=== PATIENT | female | born 1930 | race African-American/Black ===

== ENCOUNTER → 2017-12-09 | Outpatient (CLI) | payer BC, MEDICARE ==
[~2017-12-09] MED LIST: AMLO10TA2 PO; ASPI1TAB57 PO; LEVO.05 PO; VITA1000 PO; VITA10004 PO
[2017-12-09 12:26] LABS: AUTOMATED NEUTROPHIL # 2.8 TH/MM3 (1.8-7.7); BASOPHIL # 0.1 TH/MM3 (0-0.2); BASOPHIL % 0.9 % (0.0-2.0); EOSINOPHIL # 0.2 TH/MM3 (0-0.4); EOSINOPHIL % 3.6 % (0.0-4.0); HEMATOCRIT 36.4 % (35.0-46.0); HEMOGLOBIN 12.1 GM/DL (11.6-15.3); LYMPH % 35.6 % (9.0-44.0); LYMPHOCYTE # 1.9 TH/MM3 (1.0-4.8); MEAN CELL VOLUME 77.5 FL (80.0-100.0); MEAN CORPUSCULAR HEMOGLOBIN 25.7 PG (27.0-34.0); MEAN CORPUSCULAR HGB CONC 33.1 % (32.0-36.0); MEAN PLATELET VOLUME 7.9 FL (7.0-11.0); MONO % 7.4 % (0.0-8.0); MONOCYTE # 0.4 TH/MM3 (0-0.9); NEUT % 52.5 % (16.0-70.0); PLATELET COUNT 227 TH/MM3 (150-450); RED CELL DISTRIBUTION WIDTH 15.2 % (11.6-17.2); WHITE BLOOD COUNT 5.3 TH/MM3 (4.0-11.0)
[2017-12-09 12:29] LABS: INTERNATIONAL NORMALIZED RATIO 1.1 RATIO; PROTHROMBIN TIME - PATIENT 10.8 SEC (9.8-11.6)
[2017-12-09 12:41] LABS: BILIRUBIN, URINE NEG (NEG); BLOOD, URINE NEG (NEG); GLUCOSE,URINE NEG (NEG); KETONE, URINE NEG (NEG); MUCUS URINE FEW /lpf (OCC); NITRITE,URINE NEG (NEG); PH, URINE 6.5 (5.0-8.5); SQUAMOUS EPITHELIAL CELL URINE <1 /hpf (0-5); URINE COLOR LIGHT-YELLOW (YELLW/STRAW); URINE LEUKOCYTE ESTERASE NEG (NEG)
[2017-12-09 12:48] LABS: ALBUMIN 3.8 GM/DL (3.4-5.0); AST (GOT) 15 U/L (15-37); BLOOD UREA NITROGEN 18 MG/DL (7-18); CALCIUM 9.2 MG/DL (8.5-10.1); CHLORIDE 103 MEQ/L (98-107); CREATININE 0.99 MG/DL (0.50-1.00); GLOMERULAR FILTRATION RATE 65 ML/MIN (>89); GLUCOSE,FASTING 89 MG/DL (74-99); SODIUM (NA) 138 MEQ/L (136-145); WESTERGREN SEDIMENTATION RATE 23 mm/hr (0-30)
[2017-12-09 12:49] LABS: ALT (GPT) 17 U/L (10-53)
[2017-12-09 12:52] LABS: ALKALINE PHOSPHATASE 83 U/L (45-117); TOTAL BILIRUBIN ADULT 0.7 MG/DL (0.2-1.0); TOTAL PROTEIN 7.8 GM/DL (6.4-8.2)
== END ==
LOC: CPRE 11:20
PROVIDERS: ATTEND Orthopaedic Surgery
DX: Z01.810 Encounter for preprocedural cardiovascular examination (principal); Z01.812 Encounter for preprocedural laboratory examination; Z01.818 Encounter for other preprocedural examination; M17.12 Unilateral primary osteoarthritis, left knee; M25.50 Pain in unspecified joint; Z79.01 Long term (current) use of anticoagulants
CPT/HCPCS: 36415; 80053; 81001; 85025; 85610; 85652; 85730

== ENCOUNTER 2017-12-25 08:30 | Inpatient (IN) | payer MEDICARE, BC ==
[~2017-12-25] VITALS: Ht 172.7 cm; Wt 90.9 kg
[2018-01-15] VITALS (12 sets, daily range): BP systolic 140–171; BP diastolic 72–105; PULSE 51–108; RESP 16–20; TEMP 97.1–97.5; O2SAT 93–99
[2018-01-15] MEDS ORDERED: INSULIN HUMAN REGULAR 1,000 UNITS/10 ML VIAL SQ PRN (07:30)
[2018-01-15] MEDS ORDERED: SODIUM CHLORID 0.9% 500 ML IV PRN (07:30)
[2018-01-15] MEDS ORDERED: LACTATED RINGER'S 1000 ML IV PRN (07:30)
[2018-01-15] MEDS ORDERED: METOPROLOL TARTRATE 25 MG TAB PO PRN (07:30)
[2018-01-15] MEDS ORDERED: ROPIVACAINE PERI-ARTICULAR INJECTION. P-ARTICULR SCH ×5 (07:30)
[2018-01-15] MEDS ORDERED: POVIDONE IODINE 7.5% SCRUB 118 ML BOTTLE TOPICAL SCH (07:30)
[2018-01-15] MEDS ORDERED: CHLORHEXIDINE GLUCONATE 4% SOLN 120 ML BTL TOPICAL SCH (07:30)
[2018-01-15] MEDS ORDERED: POVIDONE IODINE 5% (ANTISEPSIS KIT) 4 APPLICATIONS EACH NARE PRN (07:30)
[2018-01-15] MEDS ORDERED: CHLORHEXIDINE GLUCONATE 2 % 1 PACK (2 CLOTHS) TOPICAL PRN (07:30)
[2018-01-15] MEDS ORDERED: DEXAMETHASONE SOD PHOS 20 MG/5 ML VIAL IV PUSH ONE (07:30)
[2018-01-15] MEDS ORDERED: TRANEXAMIC ACID INJ 909 MG in SODIUM CHLORIDE 0.9% INJ 100 ML IV SCH ×2 (07:30→12:30)
[2018-01-15] MEDS ORDERED: ceFAZolin 2 GM PREMIX 50 ML IV SCH (07:30)
[2018-01-15] MEDS ORDERED: VANCOMYCIN 1 GM/200 ML PREMIX IV SCH (07:45)
[2018-01-15] MEDS ORDERED: BUPIVACAINE LIPOSOME PF 1.3% 20 ML VIAL ONE (09:22)
[2018-01-15] MEDS ORDERED: MIDAZOLAM HCL 2 MG/2 ML VIAL ONE (09:22)
[2018-01-15] MEDS ORDERED: ACETAMINOPHEN 1000 MG/100 ML 100 ML IV ONE (09:33)
[2018-01-15] MEDS ORDERED: FAMOTIDINE 20 MG/2 ML VIAL ONE (09:33)
[2018-01-15] MEDS ORDERED: BUPIVACAINE PF 0.75% DEX-WATER INJ 2 ML AMP ONE ×2 (09:39→10:15)
[2018-01-15] MEDS ORDERED: PROPOFOL 500 MG/50 ML INJ 50 ML ONE (09:39)
[2018-01-15] MEDS ORDERED: GENTAMICIN SULFATE 80 MG/2 ML VIAL ONE (09:55)
[2018-01-15] MEDS ORDERED: LACTATED RINGER'S 1000 ML INJ 1,000 ML IV ONE (12:00)
[2018-01-15] MEDS ORDERED: PHENYLEPH/NS 1000 MCG/10 ML SYR IV ONE (12:00)
[2018-01-15] MEDS ORDERED: ePHEDrine/NS 25 MG/5 ML SYRINGE IV ONE (12:00)
[2018-01-15] MEDS ORDERED: PROPOFOL 200 MG/20 ML AMP IV ONE (12:00)
[2018-01-15] MEDS ORDERED: ZOLPIDEM TARTRATE 5 MG TAB PO PRN (12:30)
[2018-01-15] MEDS ORDERED: BISACODYL 10 MG SUPP RECTAL PRN (12:30)
[2018-01-15] MEDS ORDERED: diphenhydrAMINE HCL 50 MG/ML VIAL IV PUSH PRN (12:30)
[2018-01-15] MEDS ORDERED: ALUMINUM/MAGNESIUM/SIMETH 30 ML CUP PO PRN (12:30)
[2018-01-15] MEDS ORDERED: Post-op Orders (for Pharmacy) XX ONE (12:30)
[2018-01-15] MEDS ORDERED: NALOXONE HCL 0.4 MG/ML AMP IV PUSH PRN (12:30)
--- NOTE | 2018-01-15 12:31 | PD.OP ---
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 My ECG TECHNICIAN presence was necessary throughout this case for the manipulation and positioning of the surgical extremity. My ECG TECHNICIAN was assisting me throughout the duration of this procedure. The skill set of an Advance Registered Nurse Practitioner was medically necessary to complete this procedure. During the surgical case, the rn surgical pcu was working at the back table and the Advance Registered Nurse Practitioner was directly assisting me. Operation and Findings: IMPLANTS: DePuy Attune: Patella: size 32. Femur, posterior stabilized size 5. Tibia, rotating platform size 5. Tibial insert, rotating platform, posterior stabilized size 10 mm thickness. ESTIMATED BLOOD LOSS: 150 cc TOURNIQUET TIME: 52 minutes at 250 mmHg pressure. JUSTIFICATION FOR PROCEDURE: The patient has end-stage osteoarthritis to the knee. There is an attached conservative measures pathway form in the chart that describes the nonoperative measures that were undertaken prior to consideration of surgical management. The patient understood the risks and benefits of surgical management. See my office notes for further details PROCEDURE: The patient was brought back to the operative theatre. Adequate anesthesia was obtained. The patient received intravenous vancomycin and Ancef. The lower extremity was prepped and draped in the usual sterile fashion.The leg was exsanguinated, the tourniquet was raised. A standard anterior incision was performed followed by medial parapatellar arthrotomy was performed. End-stage arthritis was identified. Osteotomy of the patella was performed. We drilled holes for the patella. We trialed the patella component. We placed an intramedullary guide into the distal femur. We ultimately resected 11 mm off of the distal femur in 5 degrees of valgus. The remnants of the ACL and PCL were resected. Osteotomy of the proximal tibia was performed, resecting 5 mm off of the medial side. This was done with 3 degrees of posterior slope using an extramedullary guide. The distal end of the guide was placed in the mid aspect of the ankle. The femur was sized, and four chamfer cuts were completed in 3 of external rotation. We then cut the central box in the distal femur to replace the PCL. We resected the remnants of the menisci and removed osteophytes off of the femur and tibia. We then trialed the knee. We found a mismatch in flexion and extension. Extension gap was looser than flexion. We decided to downsize the femur from the originally selected size 6 to a size 5 to allow for more room posteriorly. Once this was completed we found a much better flexion/extension gap tension. The knee was also tight laterally due to the significant preoperative valgus deformity. We released the iliotibial band which helped as most of the tightness was in extension rather than flexion. The knee felt well balanced at this point. We punched the tibia for the keel, and then used standard technique to cement in components. Excess cement was removed. We trialed the knee again and the final polyethylene thickness was chosen to provide extension to 0 degrees, and flexion of 140 degrees to gravity. The ligaments were appropriately balanced. Lateral release was not necessary to obtain excellent patellofemoral tracking. The tourniquet was released and adequate hemostasis was obtained. An intra- articular injection of a ropivacaine cocktail was injected. The posterior knee was inspected for excess cement, which was removed. The final polyethylene was put into position after thorough irrigation. We then closed deep fascia with a #2 Stratafix followed by skin with 2-0 Vicryl followed by kylee. Postop plan is to weight-bear as tolerated. DVT prophylaxis will be performed with Deedee, VICTORINA conrad, early mobilization, and Lovenox followed by aspirin. Gideon Flynn MD Jan 15, 2018 12:31
[2018-01-15] MEDS ORDERED: NORC5TAB PO (12:33)
[2018-01-15] MEDS ORDERED: ASPI-183 PO (12:33)
[2018-01-15] MEDS ORDERED: ENOX40IN SQ (12:33)
[2018-01-15] MEDS ORDERED: DO NOT ADM ANY ANTICOAGULANT DRUGS PRN (12:48)
[2018-01-15] MEDS: SODIUM CHLOR 0.9% 1000 ML INJ 1,000 ML IV SCH ×2 (13:00→23:00)
--- NOTE | 2018-01-15 13:10 | RADRPT ---
EXAM DATE/TIME: 01/15/2018 13:50 [facility] COMPARISON: No previous studies available for comparison. INDICATIONS : Post-op left total knee arthroplasty. MEDICAL HISTORY : None. SURGICAL HISTORY : None. ENCOUNTER: Initial ACUITY: 1 day PAIN SCORE: Non-responsive. LOCATION: Left knee FINDINGS: AP and lateral views of the knee following arthroplasty reveals a prosthesis in anatomic alignment. F racture is not appreciated. Air is present within the joint space. There is no drain. CONCLUSION: Status post total knee arthroplasty. Uriel Strickladn MD FACR Board Certified Radiologist. This report was verified electronically.
--- NOTE | 2018-01-15 14:09 | PD.CONS ---
[facility] Reason for Consult Medical Management Primary Care Physician Velma [place] D.O. Diagnoses: History of Present Illness 87-year-old -[place] female with history of hypertension, hypothyroidism , left severe knee OA times several months duration, who despite medical management including NSAIDs, corticosteroid injections and physical therapy continued to have left knee pain, affecting her daily living of activity including ambulation. Patient was taken to the operating room today and underwent Left total knee arthroplasty. She was seen postoperatively in her room, and she denies any chest pain or shortness of breath. 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 Physical Exam Vital Signs Vital Signs Date Time Temp Pulse Resp B/P (MAP) Pulse Ox O2 Delivery O2 Flow Rate FiO2 01/15/18 08:08 98 2 01/15/18 08:05 51 01/15/18 07:54 98.1 59 22 157/79 (105) 98 Physical Exam GENERAL: This is a well-nourished, well-developed patient, in no apparent distress. SKIN: No rashes, ecchymoses or lesions. Cool and dry. HEAD: Atraumatic. Normocephalic. No temporal or scalp tenderness. EYES: Pupils equal round and reactive. Extraocular motions intact. No scleral icterus. No injection or drainage. ENT: Nose without bleeding, purulent drainage or septal hematoma. Throat without erythema, tonsillar hypertrophy or exudate. Uvula midline. Airway patent. NECK: Trachea midline. No JVD or lymphadenopathy. Supple, nontender, no meningeal signs. CARDIOVASCULAR: Regular rate and rhythm without murmurs, gallops, or rubs. RESPIRATORY: Clear to auscultation. Breath sounds equal bilaterally. No wheezes , rales, or rhonchi. GASTROINTESTINAL: Abdomen soft, non-tender, nondistended. No hepato-splenomegaly , or palpable masses. No guarding. MUSCULOSKELETAL: Extremities without clubbing, cyanosis, or edema. No joint tenderness, effusion, or edema noted. No calf tenderness. Status post left total knee arthroplasty-neurovascular intact NEUROLOGICAL: Awake and alert. Cranial nerves II through XII intact. Motor and sensory grossly within normal limits. Five out of 5 muscle strength in all muscle groups. Normal speech. Imaging Last Impressions Knee X-Ray 01/15/18 1226 Signed Impressions: Service Date/Time: Monday, January 15, 2018 13:50 - CONCLUSION: Status post total knee arthroplasty. Uriel Strickland MD Assessment and Plan Assessment and Plan 87 years old female with s/p Left total knee arthroplasty Management per Orthopedic surgery Pain management accordingly DVT prophylaxis with Lovenox PT to treat and eval Hypertension, Hypothyroidism Resume outpatient medications including Norvasc and Synthroid DVT prophylaxis: Lovenox Code Status Full code Discussed Condition With Patient, kei PhillipsFletcher MD Jan 15, 2018 14:09
--- NOTE | 2018-01-15 15:58 | HHI.DCPOC ---
Discharge Care Plan Diagnosis: (1) Primary localized osteoarthrosis, lower leg (2) Status post total knee replacement, left Your Health Problems Are: Difficulty with ADL Goals to Promote Your Health * To prevent worsening of your condition and complications * To maintain your health at the optimal level Directions to Meet Your Goals Take your medications as prescribed Follow your dietary instruction Follow activity as directed Keep your appointments as scheduled Take your immunizations and boosters as scheduled If your symptoms worsen call your PCP, if no PCP go to Urgent Care Center or Emergency Room Smoking is Dangerous to Your Health. Avoid second hand smoke Call the 24-hour hour crisis hotline for domestic abuse at Matthew Tran Jan 15, 2018 15:58
--- NOTE | 2018-01-15 15:59 | HHI.FF ---
Face to Face Verification Diagnosis: (1) Primary localized osteoarthrosis, lower leg (2) Status post total knee replacement, left Physical Therapy Gait training, Transfer training, bed to chair Knee: Total knee Left LE Weight Bearing: WB as tolerated Left LE Range of Motion: Active ROM Nursing Nursing: Fabiano teaching Dressing Changes: Do not change dressing Additional Instructions First dressing change in the office I have seen patient Magnolia Wu on 01/15/18. My clinical findings support the need for the requested home health care services because: Limited ability to care for self High risk of falls I certify that my clinical findings support that this patient is homebound because: Post-op weakness Unsteady gait/balance Matthew Tran Jan 15, 2018 15:59
[2018-01-15] MEDS ORDERED: WALKER WHEELS/F1 MIS (16:00)
[2018-01-15] MEDS ORDERED: CPMMACHINE (16:00)
[2018-01-15] MEDS ORDERED: COMMODE 3-IN-11 MIS (16:00)
[2018-01-15] MEDS: ACETAMINOPHEN/HYDROcodone 325 MG/5 MG TAB PO PRN (17:45)
[2018-01-15] MEDS: MORPHINE SULFATE 2 MG/ML SYRINGE IV PUSH PRN (18:35)
[2018-01-15] MEDS: ONDANSETRON HCL 4 MG/2 ML VIAL IVP PRN (20:18)
[2018-01-15] MEDS ORDERED: SODIUM CHLOR 0.9% 1000 ML INJ 1,000 ML IV STA (20:53)
--- NOTE | 2018-01-15 21:33 | RADRPT ---
EXAM DATE/TIME: 01/15/2018 20:57 [facility] COMPARISON: No previous studies available for comparison. INDICATIONS : Patient complains of left knee pain status post fall. MEDICAL HISTORY : None. SURGICAL HISTORY : Left total knee arthroplasty. ENCOUNTER: Initial ACUITY: 1 day PAIN SCORE: 5/10 LOCATION: Left Knee FINDINGS: Examination reveals a longitudinal fracture involving the medial femoral condyle adjacent to the femo ral component of a total knee arthroplasty. There is prominent periarticular soft tissue swelling. Th e patella and tibia appear intact. CONCLUSION: Medial femoral condyle fracture. Minimally displaced. Baldo Ramos MD on January 15, 2018 at 21:30 Board Certified Radiologist. This report was verified electronically.
[2018-01-15 21:54] LABS: AUTOMATED NEUTROPHIL # 9.6 TH/MM3 (1.8-7.7); BASOPHIL % 0.1 % (0.0-2.0); HEMATOCRIT 28.2 % (35.0-46.0); HEMOGLOBIN 9.3 GM/DL (11.6-15.3); LYMPH % 6.9 % (9.0-44.0); LYMPHOCYTE # 0.7 TH/MM3 (1.0-4.8); MEAN CELL VOLUME 78.2 FL (80.0-100.0); MEAN CORPUSCULAR HEMOGLOBIN 25.8 PG (27.0-34.0); MEAN CORPUSCULAR HGB CONC 32.9 % (32.0-36.0); MEAN PLATELET VOLUME 7.7 FL (7.0-11.0); MONO % 3.5 % (0.0-8.0); MONOCYTE # 0.4 TH/MM3 (0-0.9); NEUT % 89.5 % (16.0-70.0); PLATELET COUNT 172 TH/MM3 (150-450); RED CELL DISTRIBUTION WIDTH 15.9 % (11.6-17.2); WHITE BLOOD COUNT 10.7 TH/MM3 (4.0-11.0)
[2018-01-16] VITALS (8 sets, daily range): BP systolic 92–127; BP diastolic 52–79; PULSE 69–90; RESP 15–18; TEMP 97.8–98.6; O2SAT 92–98
[2018-01-16 05:21] LABS: HEMATOCRIT 27.4 % (35.0-46.0); MEAN CELL VOLUME 77.9 FL (80.0-100.0); MEAN CORPUSCULAR HEMOGLOBIN 25.6 PG (27.0-34.0); MEAN CORPUSCULAR HGB CONC 32.8 % (32.0-36.0); MEAN PLATELET VOLUME 8.4 FL (7.0-11.0); PLATELET COUNT 165 TH/MM3 (150-450); RED BLOOD COUNT 3.52 MIL/MM3 (4.00-5.30); RED CELL DISTRIBUTION WIDTH 15.7 % (11.6-17.2); WHITE BLOOD COUNT 11.8 TH/MM3 (4.0-11.0)
[2018-01-16] MEDS: LEVOTHYROXINE SODIUM 50 MCG TAB PO SCH (06:00)
[2018-01-16] MEDS ORDERED: DEXAMETHASONE SOD PHOS 20 MG/5 ML VIAL IV ONE (07:45)
[2018-01-16] MEDS: MAGNESIUM HYDROXIDE SUSP 30 ML CUP PO PRN (08:28)
[2018-01-16] MEDS: ACETAMINOPHEN/HYDROcodone 325 MG/5 MG TAB PO PRN (08:36)
[2018-01-16] MEDS: SODIUM CHLOR 0.9% 1000 ML INJ 1,000 ML IV SCH ×2 (09:00→19:00)
--- NOTE | 2018-01-16 10:06 | RADRPT ---
EXAM DATE/TIME: 01/16/2018 09:13 [facility] COMPARISON: No previous studies available for comparison. INDICATIONS : Trauma, fall last night. Recent left knee replacement. RADIATION DOSE: 20.79 CTDIvol (mGy) MEDICAL HISTORY : Hypertension. SURGICAL HISTORY : Hysterectomy. ENCOUNTER: Initial ACUITY: 1 day PAIN SCALE: 7/10 LOCATION: Left knee TECHNIQUE: Volumetric scanning of the knee was performed. Using automated exposure control and adjustment of th e mA and/or kV according to patient size, radiation dose was kept as low as reasonably achievable to obtain optimal diagnostic quality images. DICOM format image data is available electronically for re view and comparison. FINDINGS: BONES: Cortical displacement characteristics of a fracture is identified extending from the medial supracond ylar region of the femur downward towards the prosthesis. The fracture does appear to have a transver se component involving the medial femoral condylar region. Due to significant artifact the complete e xtent of the fracture cannot be seen. JOINTS: Total arthroplasty is identified. The components appear to be well-seated in satisfactory aligned. SOFT TISSUES: Significant periarticular soft tissue inflammation and subcutaneous air is identified following joint replacement. There are no loculated fluid collections. CONCLUSION: 1. Medial condylar fracture which is only partially visualized due to significant artifact from the p atient's prosthesis. 2. Status post total knee arthroplasty. 3. Soft tissue inflammation which may be related to recent replacement and or trauma. Omid Garcia MD on January 16, 2018 at 9:45 Board Certified Radiologist. This report was verified electronically.
[2018-01-16] MEDS ORDERED: ENOXAPARIN SODIUM 40 MG/0.4 ML SYRINGE SQ SCH ×2 (12:00→20:00)
--- NOTE | 2018-01-16 13:25 | HHI.PR ---
Subjective Remarks Follow up Left total knee. Postop day 1. patient had a fall last night but states she is doing better. Denies any pain. She just returned from CT when evaluated. Objective Vitals Vital Signs Date Time Temp Pulse Resp B/P (MAP) Pulse Ox O2 Delivery O2 Flow Rate FiO2 01/16/18 12:10 98.2 90 15 92/53 (66) 95 01/16/18 08:10 98.3 90 17 95/54 (68) 96 01/16/18 04:10 97.8 89 18 110/52 (71) 98 01/16/18 00:10 98.6 69 18 127/79 (95) 94 01/15/18 22:10 97.3 93 17 147/91 (109) 93 01/15/18 21:10 97.3 101 17 140/96 (111) 94 01/15/18 20:30 108 16 158/99 (118) 96 01/15/18 20:21 97.5 107 18 171/100 (123) 98 01/15/18 20:10 97.4 97 18 167/105 (125) 98 01/15/18 20:00 97.1 87 20 164/93 (116) 94 01/15/18 16:00 97.1 107 16 140/72 (94) 99 01/15/18 14:05 72 16 121/71 (88) 97 Room Air 01/15/18 13:45 70 16 117/66 (83) 98 Room Air 01/15/18 13:30 74 16 112/67 (82) 98 Room Air I/O 01/15/18 01/15/18 01/15/18 01/16/18 01/16/18 01/16/18 07:00 15:00 23:00 07:00 15:00 23:00 Intake Total 1409.09 ml 0 ml Output Total 150 ml Balance 1259.09 ml 0 ml Intake Oral 0 ml IV Total 1409.09 ml Output Estimated Blood Loss 150 ml # Voids 2 Result Diagram: 01/16/18 0345 Imaging Last Impressions Lower Extremity CT 01/16/18 0000 Signed Impressions: Service Date/Time: December 09:13 - CONCLUSION: 1. Medial condylar fracture which is only partially visualized due to significant artifact from the patient's prosthesis. 2. Status post total knee arthroplasty. 3. Soft tissue inflammation which may be related to recent replacement and or trauma. Omid Garcia MD Knee X-Ray 01/15/18 1226 Signed Impressions: Service Date/Time: Monday, January 15, 2018 13:50 - CONCLUSION: Status post total knee arthroplasty. Uriel Strickland MD Objective Remarks GENERAL: SKIN: Warm and dry. HEAD: Atraumatic. Normocephalic. EYES: Pupils equal and round. No scleral icterus. No injection or drainage. ENT: No nasal bleeding or discharge. Mucous membranes pink and moist. NECK: Trachea midline. No JVD. CARDIOVASCULAR: Regular rate and rhythm. RESPIRATORY: No accessory muscle use. Clear to auscultation. Breath sounds equal bilaterally. GASTROINTESTINAL: Abdomen soft, non-tender, nondistended. Hepatic and splenic margins not palpable. MUSCULOSKELETAL: Extremities without clubbing, cyanosis, or edema. No obvious deformities. NEUROLOGICAL: Awake and alert. No obvious cranial nerve deficits. Motor grossly within normal limits. Normal speech. PSYCHIATRIC: Appropriate mood and affect; insight and judgment normal. Medications and IVs Current Medications Medications (Trade) Dose Ordered Sig/Leo Route Start Time Stop Time Status Last Admin Lactated Ringer's 1,000 ml @ 30 mls/hr Q24H PRN IV 01/15/18 07:30 01/18/18 07:29 01/15/18 08:00 Sodium Chloride 500 ml @ 30 mls/hr [id number] PRN IV 01/15/18 07:30 01/18/18 07:29 (Lopressor) 25 mg CARDIOVASCULAR OR NURSE PRN PO 01/15/18 07:30 01/18/18 07:29 (Betadine 5% Antisepsis Kit) 1 applic CARDIOVASCULAR OR NURSE PRN EACH NARE 01/15/18 07:30 01/18/18 07:29 01/15/18 07:50 (Chlorhexidine 2% Cloth) 3 pack CARDIOVASCULAR OR NURSE PRN TOPICAL 01/15/18 07:30 01/18/18 07:29 01/15/18 07:30 (NovoLIN R INJ) See Protocol Table ... CARDIOVASCULAR OR NURSE PRN SQ 01/15/18 07:30 01/18/18 07:29 (Betadine 7.5% Scrub) 1 applic ONCE TOPICAL 01/15/18 07:30 01/18/18 07:29 (Hibiclens 4% Top Soln) 1 applic ONCE TOPICAL 01/15/18 07:30 01/18/18 07:29 Cefazolin Sodium/ Dextrose 50 ml @ 100 mls/hr CARDIOVASCULAR OR NURSE IV 01/15/18 07:30 01/18/18 07:29 01/15/18 10:00 Vancomycin/Sodium Chloride 200 ml @ 200 mls/hr CARDIOVASCULAR OR NURSE IV 01/15/18 07:45 01/18/18 07:44 01/15/18 09:22 (Norvasc) 10 mg DAILY PO 01/16/18 09:00 (Synthroid) 50 mcg DAILY@0600 PO 01/16/18 06:00 Sodium Chloride 1,000 ml @ 100 mls/hr Q10H IV 01/15/18 13:00 01/15/18 13:00 (Lovenox Inj) 40 mg Q24H SQ 01/16/18 12:00 Future Hold (Melvin 5-325 Mg) 1 tab Q4H PRN PO 01/15/18 12:30 01/16/18 08:36 (Melvin 5-325 Mg) 2 tab Q4H PRN PO 01/15/18 12:30 (Theragran M Tab) 1 tab BID PO 01/16/18 21:00 03/17/18 20:59 (Zofran Inj) 4 mg Q6H PRN IVP 01/15/18 12:30 01/15/18 20:18 (Colace) 100 mg BID PO 01/16/18 21:00 (Mag-Al Plus Susp Liq) 30 ml Q6H PRN PO 01/15/18 12:30 (Ambien) 5 mg HS PRN PO 01/15/18 12:30 (Dulcolax Supp) 10 mg DAILY PRN RECTAL 01/15/18 12:30 (Milk Of Magnesia Liq) 30 ml DAILY PRN PO 01/15/18 12:30 01/16/18 08:28 (Narcan Inj) 0.4 mg UNSCH PRN IV PUSH 01/15/18 12:30 (Benadryl Inj) 25 mg Q6H PRN IV PUSH 01/15/18 12:30 (Morphine Inj) 2 mg Q3H PRN IV PUSH 01/15/18 13:30 01/15/18 18:35 Urinary Catheter: No Vascular Central Line Catheter: No A/P Assessment and Plan 87 years old female with s/p Left total knee arthroplasty -Management per Orthopedic surgery -Pain management accordingly -DVT prophylaxis with Lovenox -Cont PT Medial condyle fracture, status post fall -Ortho to make decision on surgery Anemia, acute, HGB 9.3-->9.0 -Labs in AM Hypertension, Hypothyroidism -Continue outpatient medications Norvasc and Synthroid DVT prophylaxis: Lovenox per ortho Discharge Planning Discharge according to orthopedics Tammy Garcia Jan 16, 2018 13:25
--- NOTE | 2018-01-16 18:40 | PD.ORT.PN ---
Subjective Subjective Remarks The patient last night had a fall that was witnessed and also next to 1 of the nursing staff. The patient had some mild bloody drainage around the wound at that time. The patient was sent for an x-ray and was found to have a minimally displaced fracture. We reviewed the x-rays in the morning and ordered a CT scan of the knee. The patient currently says that the knee feels well without any significant pain. Her only complaint is that she has fatigue. Objective Vitals Vital Signs Date Time Temp Pulse Resp B/P (MAP) Pulse Ox O2 Delivery O2 Flow Rate FiO2 01/16/18 17:56 21 01/16/18 16:10 97.8 81 15 94/56 (69) 92 01/16/18 12:10 98.2 90 15 92/53 (66) 95 01/16/18 08:10 98.3 90 17 95/54 (68) 96 01/16/18 04:10 97.8 89 18 110/52 (71) 98 01/16/18 00:10 98.6 69 18 127/79 (95) 94 01/15/18 22:10 97.3 93 17 147/91 (109) 93 01/15/18 21:10 97.3 101 17 140/96 (111) 94 01/15/18 20:30 108 16 158/99 (118) 96 01/15/18 20:21 97.5 107 18 171/100 (123) 98 01/15/18 20:10 97.4 97 18 167/105 (125) 98 01/15/18 20:00 97.1 87 20 164/93 (116) 94 I/O 01/15/18 01/15/18 01/15/18 01/16/18 01/16/18 01/16/18 07:00 15:00 23:00 07:00 15:00 23:00 Intake Total 1409.09 ml 0 ml Output Total 150 ml 450 ml Balance 1259.09 ml 0 ml -450 ml Intake Oral 0 ml IV Total 1409.09 ml Output Urine Total 450 ml Estimated Blood Loss 150 ml # Voids 2 Result Diagram: 01/16/18 0345 Imaging Last 24 hours Impressions Lower Extremity CT 01/16/18 0000 Signed Impressions: Service Date/Time: December 09:13 - CONCLUSION: 1. Medial condylar fracture which is only partially visualized due to significant artifact from the patient's prosthesis. 2. Status post total knee arthroplasty. 3. Soft tissue inflammation which may be related to recent replacement and or trauma. Omid Garcia MD Objective Remarks I removed the Javy bandage showing that the previous dressing had just some mild dried blood on it. I remove this dressing and looked at the Dermabond mesh which showed that her incision was completely intact with no evidence of dehiscence. Overall the wound had only mild swelling. There was no redness or active bleeding. There is normal alignment to the knee. The calf had no tenderness. She moves her toes and ankle well. She has a 2+ dorsalis pedis pulse. A new dressing was applied. Assessment & Plan Assessment and Plan Postop day #1 status post left total knee arthroplasty. New postoperative minimally displaced vertically oriented medial condylar fracture. I reviewed the x-rays and the CT scan report and the images that I reviewed myself with the patient and her son who were at the bedside. We discussed treatment options for this injury. At this point I have recommended nonoperative management. I do not see extension of the fracture into the supracondylar transverse region of the femur. I did explain that if displacement were to occur then surgical management for ORIF would be indicated. We discussed that there will be a change in her postoperative protocol due to this and will require closer monitoring. Initially we held the Lovenox this morning until I could see her and reviewed the images. I have reordered Lovenox to start now. I discussed this with the nurse. Plan: Toe-touch weightbearing left lower extremity. Canvas knee splint at all times. Lovenox for DVT prophylaxis. Expect discharge to half-way facility when stable. Medical management by medical consult. Gideon Flynn MD Jan 16, 2018 18:40
[2018-01-16] MEDS: DOCUSATE SODIUM 100 MG CAP PO SCH (20:39)
[2018-01-16] MEDS: MULTIVITAMINS/MINERALS THERAPEUTIC TAB PO SCH (20:39)
[2018-01-17] VITALS (10 sets, daily range): BP systolic 112–145; BP diastolic 56–81; PULSE 55–101; RESP 16–28; TEMP 97.8–98.7; O2SAT 91–94
[2018-01-17] MEDS: SODIUM CHLOR 0.9% 1000 ML INJ 1,000 ML IV SCH ×2 (05:00→09:50)
[2018-01-17 06:05] LABS: AUTOMATED NEUTROPHIL # 8.9 TH/MM3 (1.8-7.7); BASOPHIL % 0.1 % (0.0-2.0); HEMATOCRIT 22.4 % (35.0-46.0); HEMOGLOBIN 7.4 GM/DL (11.6-15.3); LYMPH % 15.7 % (9.0-44.0); LYMPHOCYTE # 1.9 TH/MM3 (1.0-4.8); MEAN CELL VOLUME 77.2 FL (80.0-100.0); MEAN CORPUSCULAR HEMOGLOBIN 25.5 PG (27.0-34.0); MEAN PLATELET VOLUME 8.4 FL (7.0-11.0); MONO % 10.8 % (0.0-8.0); MONOCYTE # 1.3 TH/MM3 (0-0.9); NEUT % 73.4 % (16.0-70.0); PLATELET COUNT 132 TH/MM3 (150-450); RED CELL DISTRIBUTION WIDTH 15.3 % (11.6-17.2); WHITE BLOOD COUNT 12.1 TH/MM3 (4.0-11.0)
[2018-01-17] MEDS: LEVOTHYROXINE SODIUM 50 MCG TAB PO SCH (06:08)
[2018-01-17 06:26] LABS: BLOOD UREA NITROGEN 24 MG/DL (7-18); CALCIUM 7.9 MG/DL (8.5-10.1); CHLORIDE 105 MEQ/L (98-107); CREATININE 1.31 MG/DL (0.50-1.00); GLOMERULAR FILTRATION RATE 47 ML/MIN (>89); GLUCOSE,RANDOM 117 MG/DL (74-106); SODIUM (NA) 137 MEQ/L (136-145)
[2018-01-17] MEDS: MULTIVITAMINS/MINERALS THERAPEUTIC TAB PO SCH ×2 (08:01→21:01)
[2018-01-17] MEDS: DOCUSATE SODIUM 100 MG CAP PO SCH ×2 (08:01→21:01)
[2018-01-17] MEDS: MAGNESIUM HYDROXIDE SUSP 30 ML CUP PO PRN (08:02)
[2018-01-17] MEDS: ACETAMINOPHEN/HYDROcodone 325 MG/5 MG TAB PO PRN (08:03)
--- NOTE | 2018-01-17 10:10 | HHI.PR ---
Subjective Remarks Patient found non responsive, halicat was called, seems patient had a vasovagal response. Patient examined and found to be lethargic, tachycardic and nauseated. Objective Vitals Vital Signs Date Time Temp Pulse Resp B/P (MAP) Pulse Ox O2 Delivery O2 Flow Rate FiO2 01/17/18 07:52 98.3 85 16 112/60 (77) 93 01/17/18 04:10 98.4 87 17 114/56 (75) 94 01/17/18 00:10 98.4 73 17 116/59 (78) 93 01/16/18 22:10 21 01/16/18 20:10 98.4 89 17 96/57 (70) 92 01/16/18 17:56 21 01/16/18 16:10 97.8 81 15 94/56 (69) 92 01/16/18 12:10 98.2 90 15 92/53 (66) 95 I/O 01/16/18 01/16/18 01/16/18 01/17/18 01/17/18 01/17/18 07:00 15:00 23:00 07:00 15:00 23:00 Intake Total 0 ml 480 ml 360 ml Output Total 450 ml Balance 0 ml 30 ml 360 ml Intake Oral 0 ml 480 ml 360 ml Output Urine Total 450 ml # Voids 2 2 2 # Bowel Movements 0 0 Result Diagram: 01/17/18 0515 01/17/18 0515 Objective Remarks GENERAL: SKIN: Warm and dry. HEAD: Atraumatic. Normocephalic. EYES: Pupils equal and round. No scleral icterus. No injection or drainage. ENT: No nasal bleeding or discharge. Mucous membranes pink and moist. NECK: Trachea midline. No JVD. CARDIOVASCULAR: Tachycardic rate and irregular rhythm. RESPIRATORY: No accessory muscle use. Clear to auscultation. Breath sounds equal bilaterally. GASTROINTESTINAL: Abdomen soft, non-tender, nondistended. Hepatic and splenic margins not palpable. nausea MUSCULOSKELETAL: Extremities without clubbing, cyanosis, or edema. No obvious deformities. NEUROLOGICAL: Awake and Lethargic. No obvious cranial nerve deficits. Motor grossly within normal limits. Normal speech. Medications and IVs Current Medications Medications (Trade) Dose Ordered Sig/Leo Route Start Time Stop Time Status Last Admin Lactated Ringer's 1,000 ml @ 30 mls/hr Q24H PRN IV 01/15/18 07:30 01/18/18 07:29 01/15/18 08:00 Sodium Chloride 500 ml @ 30 mls/hr [id number] PRN IV 01/15/18 07:30 01/18/18 07:29 (Lopressor) 25 mg EMPLOYEE RELATIONS REPRESENTATIVE PRN PO 01/15/18 07:30 01/18/18 07:29 (Betadine 5% Antisepsis Kit) 1 applic EMPLOYEE RELATIONS REPRESENTATIVE PRN EACH NARE 01/15/18 07:30 01/18/18 07:29 01/15/18 07:50 (Chlorhexidine 2% Cloth) 3 pack EMPLOYEE RELATIONS REPRESENTATIVE PRN TOPICAL 01/15/18 07:30 01/18/18 07:29 01/15/18 07:30 (NovoLIN R INJ) See Protocol Table ... EMPLOYEE RELATIONS REPRESENTATIVE PRN SQ 01/15/18 07:30 01/18/18 07:29 (Betadine 7.5% Scrub) 1 applic ONCE TOPICAL 01/15/18 07:30 01/18/18 07:29 (Hibiclens 4% Top Soln) 1 applic ONCE TOPICAL 01/15/18 07:30 01/18/18 07:29 Cefazolin Sodium/ Dextrose 50 ml @ 100 mls/hr EMPLOYEE RELATIONS REPRESENTATIVE IV 01/15/18 07:30 01/18/18 07:29 01/15/18 10:00 Vancomycin/Sodium Chloride 200 ml @ 200 mls/hr EMPLOYEE RELATIONS REPRESENTATIVE IV 01/15/18 07:45 01/18/18 07:44 01/15/18 09:22 (Norvasc) 10 mg DAILY PO 01/16/18 09:00 (Synthroid) 50 mcg DAILY@0600 PO 01/16/18 06:00 01/17/18 06:08 Sodium Chloride 1,000 ml @ 100 mls/hr Q10H IV 01/15/18 13:00 01/15/18 13:00 ([place] 5-325 Mg) 1 tab Q4H PRN PO 01/15/18 12:30 01/17/18 08:03 ([place] 5-325 Mg) 2 tab Q4H PRN PO 01/15/18 12:30 (Theragran M Tab) 1 tab BID PO 4/19/18 21:00 03/17/18 20:59 01/17/18 08:01 (Zofran Inj) 4 mg Q6H PRN IVP 01/15/18 12:30 01/15/18 20:18 (Colace) 100 mg BID PO 01/16/18 21:00 01/17/18 08:01 (Mag-Al Plus Susp Liq) 30 ml Q6H PRN PO 01/15/18 12:30 (Ambien) 5 mg HS PRN PO 01/15/18 12:30 (Dulcolax Supp) 10 mg DAILY PRN RECTAL 01/15/18 12:30 (Milk Of Magnesia Liq) 30 ml DAILY PRN PO 01/15/18 12:30 01/17/18 08:02 (Narcan Inj) 0.4 mg UNSCH PRN IV PUSH 01/15/18 12:30 (Benadryl Inj) 25 mg Q6H PRN IV PUSH 01/15/18 12:30 (Morphine Inj) 2 mg Q3H PRN IV PUSH 01/15/18 13:30 01/15/18 18:35 (Lovenox Inj) 40 mg Q24H SQ 01/16/18 20:00 01/16/18 18:44 Urinary Catheter: No Vascular Central Line Catheter: No A/P Assessment and Plan 87 years old female with s/p Left total knee arthroplasty -Management per Orthopedic surgery -Pain management accordingly -DVT prophylaxis with Lovenox -Cont PT Medial condyle fracture, status post fall -Ortho states patient is non surgical at this time Anemia, acute, HGB 9.3-->9.0-->7.4 -Serial H&H q6, will transfuse if hgb drops below 7 Hypertension, Hypothyroidism -Continue outpatient medications Norvasc and Synthroid Afib RVR, new onset EKG ordered and reviewed and shows afib with rvr -Troponin, cpk and d dimer ordered, D dimer 9.4, VQ scan ordered rule out PE , VQ scan shows high probability, CTA ordered and heparin drip -Lopressor IV x 1 given stat -Consult cardiology -Will transfer to [facility] for closer cardiac monitoring DVT prophylaxis: Lovenox per ortho Discharge Planning Discharge according to orthopedics Tammy Garcia Jan 17, 2018 10:10
[2018-01-17] MEDS ORDERED: METOPROLOL TARTRATE 5 MG/5 ML VIAL IV PUSH ONE (11:15)
[2018-01-17 11:43] LABS: HEMATOCRIT 23.7 % (35.0-46.0); HEMOGLOBIN 7.9 GM/DL (11.6-15.3)
[2018-01-17 12:04] LABS: TROPONIN I LESS THAN 0.02 NG/ML (0.02-0.05)
[2018-01-17] MEDS: ONDANSETRON HCL 4 MG/2 ML VIAL IVP PRN (14:20)
--- NOTE | 2018-01-17 14:35 | RADRPT ---
EXAM DATE/TIME: 01/17/2018 13:55 [facility] COMPARISON: No previous studies available for comparison. INDICATIONS : Short of breath. MEDICAL HISTORY : Hypertension. SURGICAL HISTORY : Hysterectomy. ENCOUNTER: Initial ACUITY: 3 days PAIN SCORE: 0/10 LOCATION: Bilateral chest FINDINGS: Right lung clear. Minimal parenchymal changes left base. Mild cardiomegaly. The portion of the bony skeleton visualized is unremarkable. CONCLUSION: Minimal parenchymal changes left base. Atelectasis versus early inflammatory process Uriel Strickland MD FACR on January 17, 2018 at 14:31 Board Certified Radiologist. This report was verified electronically.
[2018-01-17] MEDS ORDERED: AMIODARONE INJ 150 MG in DEXTROSE 5% IN WATER 100ML INJ 97 ML IV ONE ×2 (15:03)
--- NOTE | 2018-01-17 15:35 | MB ---
cc: Shamir Rojas MD DATE: 01/17/2018 HISTORY OF PRESENT ILLNESS: Magnolia Wu is an 87-year-old lady with history of hypertension who came in to have her left knee replacement which was done on the . She went into rapid atrial fibrillation today. Apparently a [facility] was called. The patient denies chest pain or dyspnea. She has a low hematocrit, but of course she is postoperative. Denies any angina. She can feel her heart beat fast. She says she has had heart beating fast in the past. MEDICATIONS: Her current medications include pain medication, thyroid medication. She is on amlodipine 10 mg daily; that was held this morning. She got 1 dose of IV metoprolol at 11:16 a.m. PAST MEDICAL HISTORY: Includes hypertension, hypothyroidism, GERD, osteoarthritis. PAST SURGICAL HISTORY: Includes left knee surgery, hysterectomy, benign tumors removed from her hip, breast and right eye. SOCIAL HISTORY: Nonsmoker, nondrinker. FAMILY HISTORY: Her father had some type of heart problems, but she does know specifics. REVIEW OF SYSTEMS: Otherwise noncontributory. PHYSICAL EXAMINATION: GENERAL: Well-developed, well-nourished female. She is in no acute distress. VITAL SIGNS: Charted. HEENT: Exam unremarkable. NECK: Reveals no JVD. CHEST: Clear to auscultation anteriorly. CARDIAC: S1, S2. Irregular rate and rhythm, tachycardic. No murmurs. ABDOMEN: Soft. EXTREMITIES: No peripheral edema. Pulses are intact. LABORATORY DATA: EKG shows atrial fibrillation at a heart rate of 129, LVH, LV strain pattern. Hematocrit is 22.4. Creatinine is 1.31. IMPRESSION: Paroxysmal atrial fibrillation with rapid ventricular response. PLAN: 1. The patient is currently going to VQ scan to rule out pulmonary embolism. 2. I will start IV amiodarone in attempt to convert her to sinus rhythm. 3. I am also going to change her amlodipine to diltiazem. 4. 2-D echo Doppler was ordered. 5. Further therapy to be determined. Shamir Rojas MD VEW/SB , 03:07 PM , 03:34 PM
--- NOTE | 2018-01-17 16:02 | RADRPT ---
EXAM DATE/TIME: 01/17/2018 15:16 [facility] COMPARISON: CHEST SINGLE AP, January 17, 2018, 13:55. INDICATIONS : Dyspnea. DOSE: 8.7 mCi Tc99m MAA IV 0.5 mCi Tc99m DTPA aerosol MEDICAL HISTORY : Hypertension. Gastroesophageal reflux disease. SURGICAL HISTORY : Hysterectomy. Tonsillectomy. Right breast tumor removed. ENCOUNTER: Initial ACUITY: 1 day PAIN SCALE: 0/10 LOCATION: chest TECHNIQUE: Following five minutes of tidal breathing of DTPA aerosol, planar images of the lungs were performed in eight projections. The patient was then injected with MAA, and eight-view perfusio n scan was performed. FINDINGS: There is a homogeneous pattern of aerosol delivery to the periphery of both lungs. No focal ventilat ory defects are seen. There are multiple perfusion mismatches. CONCLUSION: High probability for pulmonary embolism. Uriel Strickland MD FACR on January 17, 2018 at 15:58 Board Certified Radiologist. This report was verified electronically.
[2018-01-17] MEDS: AMIODARONE INJ 450 MG in SODIUM CHLOR 0.9% (EXCEL) INJ 241 ML IV PRN ×2 (16:37→23:00)
[2018-01-17] MEDS: DILTIAZEM HCL 60 MG TAB PO SCH (16:43)
[2018-01-17] MEDS: MORPHINE SULFATE 2 MG/ML SYRINGE IV PUSH PRN (16:43)
--- NOTE | 2018-01-17 17:52 | PD.ORT.PN ---
Subjective Post Op Day #: 2 Subjective Remarks Patient resting in bed with mild to moderate left knee pain. Patient was moved to [facility] from ortho floor after having a positive VQ scan that is suspicious for PE. Patient is getting ready to go to CT to have CTA to confirm this. Patient currently denies CP or SOB. Objective Vitals Vital Signs Date Time Temp Pulse Resp B/P (MAP) Pulse Ox O2 Delivery O2 Flow Rate FiO2 01/17/18 16:37 105 121/75 01/17/18 16:37 106 121/65 01/17/18 16:00 83 01/17/18 16:00 98.2 83 28 145/71 (95) 91 01/17/18 14:00 99 01/17/18 13:00 98.2 97 22 137/70 (92) 92 01/17/18 11:20 97.8 101 20 137/81 (99) 92 01/17/18 07:52 98.3 85 16 112/60 (77) 93 01/17/18 04:10 98.4 87 17 114/56 (75) 94 01/17/18 00:10 98.4 73 17 116/59 (78) 93 01/16/18 22:10 21 01/16/18 20:10 98.4 89 17 96/57 (70) 92 01/16/18 17:56 21 I/O 01/16/18 01/16/18 01/16/18 01/17/18 01/17/18 01/17/18 07:00 15:00 23:00 07:00 15:00 23:00 Intake Total 0 ml 480 ml 360 ml Output Total 450 ml Balance 0 ml 30 ml 360 ml Intake Oral 0 ml 480 ml 360 ml Output Urine Total 450 ml # Voids 2 2 2 # Bowel Movements 0 0 Result Diagram: 01/17/18 1130 01/17/18 0515 Imaging Last 24 hours Impressions Lower Extremity CT 01/16/18 0000 Signed Impressions: Service Date/Time: December 09:13 - CONCLUSION: 1. Medial condylar fracture which is only partially visualized due to significant artifact from the patient's prosthesis. 2. Status post total knee arthroplasty. 3. Soft tissue inflammation which may be related to recent replacement and or trauma. Omid Garcia MD Objective Remarks Dressing is C/D/I. EHL/TA/G intact. 2+ pedal pulse. Knee immobilizer in place. + SILT distally. Calf is soft. No SOB or labored breathing. Patient talking in complete sentences with son at bedside. Assessment & Plan Ortho Post Op Day #: 2 Problem List: Assessment and Plan Postop day #1 status post left total knee arthroplasty. New postoperative minimally displaced vertically oriented medial condylar fracture. (DOI: 01/16/18) Likely PE, awaiting CTA for confirmation (+ d-dimmer and VQ scan) Plan: Toe-touch weightbearing left lower extremity. Canvas knee splint at all times. Dr. Flynn spoke with hospitalist about placing patient on Heparin for DVT if confirmed with CTA imaging. Medical to manage PE. OK with ortho for anticoagulation. [facility]. Will currently stay nonoperative and continue with conservative management of distal femur fracture. Will follow closely. Patient aware ORIF may be necessary if fracture were to displace. Matthew Tran Jan 17, 2018 17:52
[2018-01-17 18:23] LABS: HEMATOCRIT 24.7 % (35.0-46.0); HEMOGLOBIN 8.3 GM/DL (11.6-15.3); MEAN CELL VOLUME 77.8 FL (80.0-100.0); MEAN CORPUSCULAR HEMOGLOBIN 26.2 PG (27.0-34.0); MEAN CORPUSCULAR HGB CONC 33.7 % (32.0-36.0); MEAN PLATELET VOLUME 7.9 FL (7.0-11.0); PLATELET COUNT 143 TH/MM3 (150-450); RED BLOOD COUNT 3.17 MIL/MM3 (4.00-5.30); RED CELL DISTRIBUTION WIDTH 15.8 % (11.6-17.2); WHITE BLOOD COUNT 11.8 TH/MM3 (4.0-11.0)
[2018-01-17 18:33] LABS: INTERNATIONAL NORMALIZED RATIO 1.1 RATIO; PROTHROMBIN TIME - PATIENT 11.1 SEC (9.8-11.6)
[2018-01-17] MEDS ORDERED: IOHEXOL 350 MG/ML 10 ML VIAL (for RAD DIAG) IVCONTRAST ONE (18:49)
--- NOTE | 2018-01-17 19:28 | RADRPT ---
EXAM DATE/TIME: 01/17/2018 18:43 [facility] COMPARISON: No previous studies available for comparison. INDICATIONS : Short of breath. IV CONTRAST: 75 cc Visipaque (iodixanol) IV RADIATION DOSE: 10.23 CTDIvol (mGy) MEDICAL HISTORY : Hypertension. SURGICAL HISTORY : Hemorrhoidectomy. left total knee ENCOUNTER: Initial ACUITY: 1 day PAIN SCALE: 0/10 LOCATION: chest TECHNIQUE: Volumetric scanning of the chest was performed using a pulmonary embolism protocol MIP images were re constructed. Using automated exposure control and adjustment of the mA and/or kV according to patien t size, radiation dose was kept as low as reasonably achievable to obtain optimal diagnostic quality images. DICOM format image data is available electronically for review and comparison. Follow-up recommendations for detected pulmonary nodules are based at a minimum on nodule size and pa tient risk factors according to Fleischner Society Guidelines. FINDINGS: PULMONARY ARTERIES: There are multiple pulmonary emboli seen laterally. Emboli are seen in the pulmonary arteries supplyi ng all lobes. LUNGS: There is increased density seen in the posterior lung bases likely related to atelectasis. Consolidat ion or even infarction cannot be excluded. PLEURAE: There is no pleural thickening or pleural effusion. MEDIASTINUM: There is good visualization of the great vessels of the middle mediastinum. No evidence of mediastin al or hilar adenopathy/mass. MUSCULOSKELETAL: Within normal limits for patient age. MISCELLANEOUS: The visualized upper abdominal organs demonstrate no acute abnormality. CONCLUSION: Multiple pulmonary emboli seen bilaterally. Baldo Canada MD on January 17, 2018 at 19:23 Board Certified Radiologist. This report was verified electronically.
[2018-01-17] MEDS: HEPARIN-D5W 25,000 U/250 ML 250 ML IV PRN (21:03)
[2018-01-18] VITALS (21 sets, daily range): BP systolic 100–134; BP diastolic 51–59; PULSE 64–82; RESP 16–27; TEMP 97.8–99; O2SAT 94–99
[2018-01-18] MEDS: SODIUM CHLOR 0.9% 1000 ML INJ 1,000 ML IV SCH ×3 (01:00→20:08)
[2018-01-18 04:17] LABS: MEAN CELL VOLUME 79.1 FL (80.0-100.0); MEAN CORPUSCULAR HEMOGLOBIN 25.4 PG (27.0-34.0); MEAN CORPUSCULAR HGB CONC 32.2 % (32.0-36.0); MEAN PLATELET VOLUME 8.5 FL (7.0-11.0); PLATELET COUNT 130 TH/MM3 (150-450); RED BLOOD COUNT 3.16 MIL/MM3 (4.00-5.30); RED CELL DISTRIBUTION WIDTH 15.6 % (11.6-17.2); WHITE BLOOD COUNT 11.1 TH/MM3 (4.0-11.0)
[2018-01-18] MEDS: LEVOTHYROXINE SODIUM 50 MCG TAB PO SCH (06:25)
[2018-01-18] MEDS: DILTIAZEM HCL 60 MG TAB PO SCH ×5 (06:25→19:00)
[2018-01-18] MEDS: MULTIVITAMINS/MINERALS THERAPEUTIC TAB PO SCH ×2 (08:52→20:08)
[2018-01-18] MEDS: DOCUSATE SODIUM 100 MG CAP PO SCH ×2 (08:52→20:07)
--- NOTE | 2018-01-18 08:56 | EKG ---
Date Performed: 01/17/2018 Time Performed: 11:00:56 PTAGE: 87 years EKG: ATRIAL FIBRILLATION WITH RAPID VENTRICULAR RESPONSE LOW QRS VOLTAGE IN PRECORDIAL LEADS POS SIBLE ANTERIOR MYOCARDIAL INFARCTION , PROBABLY OLD ABNORMAL RHYTHM ECG NO PREVIOUS TRACING DOCTOR: Tessa Lee Interpretating Date/Time 01/18/2018 08:54:10
--- NOTE | 2018-01-18 12:30 | PD.CARD.PN ---
Subjective Subjective Remarks No chest pain. SOB if moves around Objective Medications Current Medications Medications (Trade) Dose Ordered Sig/Leo Route Start Time Stop Time Status Last Admin (Synthroid) 50 mcg DAILY@0600 PO 01/16/18 06:00 01/18/18 06:25 Sodium Chloride 1,000 ml @ 100 mls/hr Q10H IV 01/15/18 13:00 01/18/18 08:53 ([place] 5-325 Mg) 1 tab Q4H PRN PO 01/15/18 12:30 01/17/18 08:03 ([place] 5-325 Mg) 2 tab Q4H PRN PO 01/15/18 12:30 (Theragran M Tab) 1 tab BID PO 01/16/18 21:00 03/17/18 20:59 01/18/18 08:52 (Zofran Inj) 4 mg Q6H PRN IVP 01/15/18 12:30 01/17/18 14:20 (Colace) 100 mg BID PO 01/16/18 21:00 01/18/18 08:52 (Mag-Al Plus Susp Liq) 30 ml Q6H PRN PO 01/15/18 12:30 (Ambien) 5 mg HS PRN PO 01/15/18 12:30 (Dulcolax Supp) 10 mg DAILY PRN RECTAL 01/15/18 12:30 (Milk Of Magnesia Liq) 30 ml DAILY PRN PO 01/15/18 12:30 01/17/18 08:02 (Narcan Inj) 0.4 mg UNSCH PRN IV PUSH 01/15/18 12:30 (Benadryl Inj) 25 mg Q6H PRN IV PUSH 01/15/18 12:30 (Morphine Inj) 2 mg Q3H PRN IV PUSH 01/15/18 13:30 01/17/18 16:43 Amiodarone HCl 450 mg/Sodium Chloride 250 ml @ 33.33 mls/ hr Q7H31M PRN IV 01/17/18 15:13 01/17/18 23:00 Heparin Sodium/ Dextrose 250 ml @ 16 mls/hr TITRATE PRN IV 01/17/18 16:45 01/18/18 21:00 01/17/18 21:03 (Eliquis) 10 mg BID PO 01/18/18 21:00 4/28/18 21:00 (Eliquis) 5 mg BID PO 01/26/18 09:00 (Cardizem) 60 mg Q6HR PO 01/19/18 07:00 (Cardizem Cd) 240 mg DAILY PO 01/19/18 09:00 UNV Vital Signs / I&O Vital Signs Date Time Temp Pulse Resp B/P (MAP) Pulse Ox O2 Delivery O2 Flow Rate FiO2 01/18/18 12:02 68 01/18/18 11:35 65 01/18/18 11:35 98.2 67 18 111/55 (73) 95 01/18/18 10:07 69 01/18/18 10:05 96 Nasal Cannula 4.00 01/18/18 09:41 68 01/18/18 08:15 98.4 71 18 105/55 (72) 97 01/18/18 08:15 67 01/18/18 06:00 78 01/18/18 05:00 68 01/18/18 04:00 68 01/18/18 03:52 66 18 110/56 (74) 99 01/18/18 03:00 64 01/18/18 02:00 70 01/18/18 01:20 72 01/18/18 01:20 99.0 71 16 134/59 (84) 99 01/18/18 00:00 97.8 67 27 107/55 (72) 96 01/18/18 00:00 67 01/17/18 23:00 60 105/58 01/17/18 22:00 56 01/17/18 20:00 55 01/17/18 20:00 98.7 55 20 114/58 (76) 01/17/18 18:00 80 01/17/18 16:37 105 121/75 01/17/18 16:37 106 121/65 01/17/18 16:00 83 01/17/18 16:00 98.2 83 28 145/71 (95) 91 01/17/18 14:00 99 01/17/18 13:00 98.2 97 22 137/70 (92) 92 I/O 01/17/18 01/17/18 01/17/18 01/18/18 01/18/18 01/18/18 07:00 15:00 23:00 07:00 15:00 23:00 Intake Total 360 ml 240 ml Output Total 800 ml 500 ml Balance 360 ml -800 ml -260 ml Intake Oral 360 ml 240 ml Output Urine Total 800 ml 500 ml # Voids 2 5 # Bowel Movements 0 0 Physical Exam Alert Chest clear CV S1S2 RRR Tele-converted from AF to SR No edema Laboratory Laboratory Tests Test 01/17/18 18:11 01/17/18 23:47 01/18/18 03:17 01/18/18 11:15 White Blood Count 11.8 TH/MM3 11.1 TH/MM3 Red Blood Count 3.17 MIL/MM3 3.16 MIL/MM3 Hemoglobin 8.3 GM/DL 8.0 GM/DL Hematocrit 24.7 % 25.0 % Mean Corpuscular Volume 77.8 FL 79.1 FL Mean Corpuscular Hemoglobin 26.2 PG 25.4 PG Mean Corpuscular Hemoglobin Concent 33.7 % 32.2 % Red Cell Distribution Width 15.8 % 15.6 % Platelet Count 143 TH/MM3 130 TH/MM3 Mean Platelet Volume 7.9 FL 8.5 FL Prothrombin Time 11.1 SEC Prothromb Time International Ratio 1.1 RATIO Activated Partial Thromboplast Time 27.1 SEC 59.3 SEC 114.0 SEC 112.2 SEC Imaging Last 48 hours Impressions Lung Scan-V Nuclear Medicine 01/17/18 0000 Signed Impressions: Service Date/Time: Wednesday, January 17, 2018 15:16 - CONCLUSION: High probability for pulmonary embolism. Uriel Strickland MD FACR Chest X-Ray 01/17/18 0000 Signed Impressions: Service Date/Time: Wednesday, January 17, 2018 13:55 - CONCLUSION: Minimal parenchymal changes left base. Atelectasis versus early inflammatory process Uriel Strickland MD FACR CT Angiography 01/17/18 0000 Signed Impressions: Service Date/Time: Wednesday, January 17, 2018 18:43 - CONCLUSION: Multiple pulmonary emboli seen bilaterally. Baldo Canada MD Assessment and Plan Problem List: (1) Pulmonary embolism ICD Codes: I26.99 - Other pulmonary embolism without acute cor pulmonale Plan: transition from IV heparin to Eliquis 10 bid x7 d, then 5 bid x 3 months (2) Hypertension ICD Codes: I10 - Essential (primary) hypertension Plan: stable (3) Paroxysmal atrial fibrillation with rapid ventricular response ICD Codes: I48.0 - Paroxysmal atrial fibrillation Plan: Off Amio. Cont. PO Dilt Assessment and Plan Transfer to Shamir Mcarthur MD Jan 18, 2018 12:30
--- NOTE | 2018-01-18 17:21 | HHI.PR ---
Subjective Remarks 87-year-old female with a left knee replacement yesterday who arrived on [facility] overnight following onset of atrial fibrillation with RVR. She has no specific complaints today, she states that she does not like the decor of her room. Objective Vitals Vital Signs Date Time Temp Pulse Resp B/P (MAP) Pulse Ox O2 Delivery O2 Flow Rate FiO2 01/18/18 16:10 81 01/18/18 15:00 72 01/18/18 15:00 98.7 67 18 100/51 (67) 95 01/18/18 14:01 82 01/18/18 13:18 81 01/18/18 13:00 78 01/18/18 12:02 68 01/18/18 11:35 65 01/18/18 11:35 98.2 67 18 111/55 (73) 95 01/18/18 10:07 69 01/18/18 10:05 96 Nasal Cannula 4.00 01/18/18 09:41 68 01/18/18 08:15 98.4 71 18 105/55 (72) 97 01/18/18 08:15 67 01/18/18 06:00 78 01/18/18 05:00 68 01/18/18 04:00 68 01/18/18 03:52 66 18 110/56 (74) 99 01/18/18 03:00 64 01/18/18 02:00 70 01/18/18 01:20 72 01/18/18 01:20 99.0 71 16 134/59 (84) 99 01/18/18 00:00 97.8 67 27 107/55 (72) 96 01/18/18 00:00 67 01/17/18 23:00 60 105/58 01/17/18 22:00 56 01/17/18 20:00 55 01/17/18 20:00 98.7 55 20 114/58 (76) 01/17/18 18:00 80 I/O 01/17/18 01/17/18 01/17/18 01/18/18 01/18/18 01/18/18 07:00 15:00 23:00 07:00 15:00 23:00 Intake Total 360 ml 240 ml 480 ml Output Total 800 ml 500 ml 450 ml Balance 360 ml -800 ml -260 ml 30 ml Intake Oral 360 ml 240 ml 480 ml Output Urine Total 800 ml 500 ml 450 ml # Voids 2 5 # Bowel Movements 0 0 0 Result Diagram: 01/18/18 0317 01/17/18 0515 Objective Remarks GENERAL: Well-nourished, well-developed patient. SKIN: Surgical wound on left knee under surgical bandage, no abnormal drainage HEAD: Normocephalic. EYES: No scleral icterus. No injection or drainage. NECK: Supple, trachea midline. No JVD or lymphadenopathy. CARDIOVASCULAR: Regular rate and rhythm without murmurs, gallops, or rubs. RESPIRATORY: Breath sounds equal bilaterally. No accessory muscle use. GASTROINTESTINAL: Abdomen soft, non-tender, nondistended. EXTREMITIES: No cyanosis, or edema. NEUROLOGICAL: Awake, alert, and oriented x 3. Non-focal. A/P Problem List: (1) Paroxysmal atrial fibrillation with rapid ventricular response ICD Code: I48.0 - Paroxysmal atrial fibrillation (2) Primary localized osteoarthrosis, lower leg ICD Code: M17.10 - Unilateral primary osteoarthritis, unspecified knee Assessment and Plan Pulmonary Embolism Workup for A. fib included d-dimer which was elevated at 9.4 Follow-up CTA revealed multiple emboli Heparin drip was given overnight Eliquis started at therapeutic dosing Recommend therapeutic dose to p.o. anticoagulant on discharge 6 months Atrial fibrillation with RVR EKG confirmed atrial fibrillation with RVR Troponin remained within normal limits Conversion following Lopressor IV, amiodarone drip, follow-up support with Cardizem p.o. Patient is currently in sinus rhythm and stable for transfer back to the orthopedic floor s/p Left total knee arthroplasty Pain is adequately controlled Continue physical therapy We will follow orthopedic recommendations Medial condyle fracture, status post fall Ortho states patient is non surgical at this time Anemia Dropped as low as 7.4 but now up to 8.0 Follow trend and transfuse if indicated Hypertension, Hypothyroidism Continue outpatient medications Norvasc and Synthroid DVT prophylaxis Patient had pulmonary emboli while on Lovenox, heparin drip run overnight, now on therapeutic dosing of Eliquis Problem Qualifiers (1) Primary localized osteoarthrosis, lower leg: Qualified Codes: M17.12 - Unilateral primary osteoarthritis, left knee Alvarado Escobar MD Jan 18, 2018 17:21
[2018-01-18] MEDS: APIXABAN 5 MG TABLET PO SCH (20:08)
[2018-01-18] MEDS: MAGNESIUM HYDROXIDE SUSP 30 ML CUP PO PRN (20:08)
[2018-01-18] MEDS: HEPARIN-D5W 25,000 U/250 ML 250 ML IV PRN (20:13)
--- NOTE | 2018-01-18 21:47 | PD.ORT.PN ---
Subjective Subjective Remarks Transferred from ICU. Patient stable. No chest pain or shortness of breath. Objective Vitals Vital Signs Date Time Temp Pulse Resp B/P (MAP) Pulse Ox O2 Delivery O2 Flow Rate FiO2 01/18/18 16:30 98.3 67 17 128/58 (81) 95 01/18/18 16:10 81 01/18/18 15:00 72 01/18/18 15:00 98.7 67 18 100/51 (67) 95 01/18/18 14:01 82 01/18/18 13:18 81 01/18/18 13:00 78 01/18/18 12:02 68 01/18/18 11:35 65 01/18/18 11:35 98.2 67 18 111/55 (73) 95 01/18/18 10:07 69 01/18/18 10:05 96 Nasal Cannula 4.00 01/18/18 09:41 68 01/18/18 08:15 98.4 71 18 105/55 (72) 97 01/18/18 08:15 67 01/18/18 06:00 78 01/18/18 05:00 68 01/18/18 04:00 68 01/18/18 03:52 66 18 110/56 (74) 99 01/18/18 03:00 64 01/18/18 02:00 70 01/18/18 01:20 72 01/18/18 01:20 99.0 71 16 134/59 (84) 99 01/18/18 00:00 97.8 67 27 107/55 (72) 96 01/18/18 00:00 67 01/17/18 23:00 60 105/58 01/17/18 22:00 56 I/O 01/17/18 01/17/18 01/17/18 01/18/18 01/18/18 01/18/18 07:00 15:00 23:00 07:00 15:00 23:00 Intake Total 360 ml 240 ml 480 ml Output Total 800 ml 500 ml 450 ml Balance 360 ml -800 ml -260 ml 30 ml Intake Oral 360 ml 240 ml 480 ml Output Urine Total 800 ml 500 ml 450 ml # Voids 2 5 1 # Bowel Movements 0 0 0 Result Diagram: 01/18/18 0317 01/17/18 0515 Imaging Last 24 hours Impressions Lower Extremity CT 01/16/18 0000 Signed Impressions: Service Date/Time: December 09:13 - CONCLUSION: 1. Medial condylar fracture which is only partially visualized due to significant artifact from the patient's prosthesis. 2. Status post total knee arthroplasty. 3. Soft tissue inflammation which may be related to recent replacement and or trauma. Omid Garcia MD Objective Remarks Dressing is C/D/I. EHL/TA/G intact. 2+ pedal pulse. Knee immobilizer in place. + SILT distally. Calf is soft. No SOB or labored breathing. Patient talking in complete sentences with son at bedside. Assessment & Plan Assessment and Plan Postop day #3 status post left total knee arthroplasty, postoperative pulmonary embolism New postoperative minimally displaced vertically oriented medial condylar fracture. (DOI: 01/16/18) Plan: heparin drip, managed by medical team Toe-touch weightbearing left lower extremity. Canvas knee splint at all times. Expect discharge to [facility] facility when stable. Will currently stay nonoperative and continue with conservative management of distal femur fracture. Will follow closely. Patient aware ORIF may be necessary if fracture were to displace. Stanley Olivares Jr., MD Jan 18, 2018 21:47
[2018-01-19] VITALS (7 sets, daily range): BP systolic 95–123; BP diastolic 52–65; PULSE 65–93; RESP 16–18; TEMP 98.5–99.4; O2SAT 95–99
[2018-01-19] MEDS: DILTIAZEM HCL 60 MG TAB PO SCH ×2 (00:30→06:09)
[2018-01-19] MEDS: LEVOTHYROXINE SODIUM 50 MCG TAB PO SCH (06:09)
[2018-01-19] MEDS: SODIUM CHLOR 0.9% 1000 ML INJ 1,000 ML IV SCH ×3 (06:10→21:22)
[2018-01-19] MEDS: MULTIVITAMINS/MINERALS THERAPEUTIC TAB PO SCH ×2 (08:51→21:19)
[2018-01-19] MEDS: DOCUSATE SODIUM 100 MG CAP PO SCH ×3 (08:51→21:19)
[2018-01-19] MEDS: APIXABAN 5 MG TABLET PO SCH ×2 (08:52→21:19)
[2018-01-19] MEDS: DILTIAZEM-CD 240 MG CAP ER PO SCH ×3 (08:53→09:02)
--- NOTE | 2018-01-19 11:26 | HHI.PR ---
Subjective Remarks Patient states she felt a bit dizzy earlier today. Denies any shortness of breath or chest pains. No nausea or vomiting. Discussed with RN, patient's dressing is saturated with blood. Objective Vitals Vital Signs Date Time Temp Pulse Resp B/P (MAP) Pulse Ox O2 Delivery O2 Flow Rate FiO2 01/19/18 08:00 98.6 65 17 95/52 (66) 95 01/19/18 04:00 99.3 71 18 118/57 (77) 95 01/19/18 00:00 99.4 69 17 101/58 (72) 95 01/18/18 21:29 Nasal Cannula 3.00 01/18/18 20:00 99.0 72 18 121/56 (77) 94 01/18/18 16:30 98.3 67 17 128/58 (81) 95 01/18/18 16:10 81 01/18/18 15:00 72 01/18/18 15:00 98.7 67 18 100/51 (67) 95 01/18/18 14:01 82 01/18/18 13:18 81 01/18/18 13:00 78 01/18/18 12:02 68 01/18/18 11:35 65 01/18/18 11:35 98.2 67 18 111/55 (73) 95 I/O 01/18/18 01/18/18 01/18/18 01/19/18 01/19/18 01/19/18 07:00 15:00 23:00 07:00 15:00 23:00 Intake Total 240 ml 738 ml Output Total 500 ml 450 ml Balance -260 ml 288 ml Intake Oral 240 ml 480 ml IV Total 258 ml Output Urine Total 500 ml 450 ml # Voids 2 2 # Bowel Movements 0 0 Result Diagram: 01/18/18 0317 01/17/18 0515 Imaging Last Impressions Lung Scan-VQ Nuclear Medicine 01/17/18 0000 Signed Impressions: Service Date/Time: Wednesday, January 17, 2018 15:16 - CONCLUSION: High probability for pulmonary embolism. Uriel Strickalnd MD FACR Chest X-Ray 01/17/18 0000 Signed Impressions: Service Date/Time: Wednesday, January 17, 2018 13:55 - CONCLUSION: Minimal parenchymal changes left base. Atelectasis versus early inflammatory process Uriel Strickland MD FACR CT Angiography 01/17/18 0000 Signed Impressions: Service Date/Time: Wednesday, January 17, 2018 18:43 - CONCLUSION: Multiple pulmonary emboli seen bilaterally. Baldo Canada MD Lower Extremity CT 01/16/18 0000 Signed Impressions: Service Date/Time: December 09:13 - CONCLUSION: 1. Medial condylar fracture which is only partially visualized due to significant artifact from the patient's prosthesis. 2. Status post total knee arthroplasty. 3. Soft tissue inflammation which may be related to recent replacement and or trauma. Omid Garcia MD Knee X-Ray 01/15/18 1226 Signed Impressions: Service Date/Time: Monday, January 15, 2018 13:50 - CONCLUSION: Status post total knee arthroplasty. Uriel Strickland MD Objective Remarks GENERAL: Well-nourished, well-developed patient. SKIN: Surgical wound on left knee oozing blood. RN cleaning it. Incision does appear intact. No hematoma palpated CARDIOVASCULAR: Regular rate and rhythm without murmurs RESPIRATORY: Breath sounds equal bilaterally. No accessory muscle use. GASTROINTESTINAL: Abdomen soft, non-tender, nondistended. EXTREMITIES: incision oozing blood, RN at bedside cleaning the area and changing dressing. NEUROLOGICAL: Awake, alert, and oriented x 3. Non-focal. A/P Problem List: (1) Paroxysmal atrial fibrillation with rapid ventricular response ICD Code: I48.0 - Paroxysmal atrial fibrillation (2) Primary localized osteoarthrosis, lower leg ICD Code: M17.10 - Unilateral primary osteoarthritis, unspecified knee Assessment and Plan Pulmonary Embolism confirmed on CTA s/p Heparin drip and now has been switched to eliquis 10mg po BID x 7 days then down to 5mg po BID Per cardiology, continue x 3 months. Atrial fibrillation with RVR EKG confirmed atrial fibrillation with RVR Troponin remained within normal limits Conversion following Lopressor IV, amiodarone drip, now on Cardizem p.o. s/p Left total knee arthroplasty continue pain control Continue physical therapy monitor H&H Medial condyle fracture, status post fall Ortho states patient is non surgical at this time Anemia monitor closely as pt on full anticoagulation Hypertension, Hypothyroidism Continue outpatient medications Norvasc and Synthroid DVT prophylaxis on eliquis Discharge Planning waiting on STAT H&H and monitor closely. Transfuse if Hb<7 Problem Qualifiers (1) Primary localized osteoarthrosis, lower leg: Qualified Codes: M17.12 - Unilateral primary osteoarthritis, left knee ArsalanJuana leary MD Jan 19, 2018 11:26
[2018-01-19 12:30] LABS: HEMATOCRIT 22.1 % (35.0-46.0); HEMOGLOBIN 7.3 GM/DL (11.6-15.3)
--- NOTE | 2018-01-19 13:19 | ECHRPT ---
Indication: A FIB FLUTTER CONCLUSIONS Normal left ventricular size. Wall thickness is normal. The left ventricular systolic function is normal with an estimated ejection fraction in the range of 60-65%. Mitral annular calcification is present. Aortic valve sclerosis is present. Trace aortic valve regurgitation. There is mild tricuspid valve regurgitation. There is estimated mild pulmonary hypertension present (51mmHg). BP: / HR: Rhythm: MEASUREMENTS (Male / Female) Normal Values Technical Quality: 2D ECHO LV Diastolic Diameter PLAX 4.3 cm 4.2 - 5.9 / 3.9 - 5.3 cm LV Systolic Diameter PLAX 2.8 cm IVS Diastolic Thickness 1.1 cm 0.6 - 1.0 / 0.6 - 0.9 cm LVPW Diastolic Thickness 0.7 cm 0.6 - 1.0 / 0.6 - 0.9 cm LV Relative Wall Thickness 0.4 RV Internal Dim ED PLAX 2.9 cm LA Systolic Diameter LX 3.9 cm 3.0 - 4.0 / 2.7 - 3.8 cm DOPPLER AV Peak Velocity 235.0 cm/s AV Peak Gradient 22.1 mmHg LVOT Peak Velocity 124.0 cm/s LVOT Peak Gradient 6.2 mmHg Mitral E Point Velocity 70.3 cm/s Mitral A Point Velocity 122.0 cm/s Mitral E to A Ratio 0.6 TR Peak Velocity 322.0 cm/s TR Peak Gradient 41.5 mmHg Right Atrial Pressure 10.0 mmHg Pulmonary Artery Systolic Pressu 51.5 mmHg Right Ventricular Systolic Press 51.5 mmHg FINDINGS LEFT VENTRICLE Normal left ventricular size. Wall thickness is normal. The left ventricular systolic function is normal with an estimated ejection fraction in the range of 60-65%. RIGHT VENTRICLE Normal right ventricular size and systolic function. LEFT ATRIUM The left atrial size is normal. RIGHT ATRIUM The right atrial size is normal. ATRIAL SEPTUM Normal atrial septal thickness without atrial level shunting by limited color doppler interrogation. AORTA The aortic root and proximal ascending aorta are normal in size on limited imaging. MITRAL VALVE Mitral annular calcification is present. AORTIC VALVE Aortic valve sclerosis is present. Trace aortic valve regurgitation. TRICUSPID VALVE There is mild tricuspid valve regurgitation. There is estimated mild pulmonary hypertension present (51mmHg). PULMONARY VALVE No pulmonary valve regurgitation or stenosis. VESSELS The inferior vena cava is normal in size. PERICARDIUM No pericardial effusion. Tessa Lee MD (Electronically Signed) Final Date:19 January 2018 13:18 Amended: 19 January 2018 13:23
--- NOTE | 2018-01-19 14:01 | PD.ORT.PN ---
Subjective Subjective Remarks Patient stable. No chest pain or shortness of breath. Objective Vitals Vital Signs Date Time Temp Pulse Resp B/P (MAP) Pulse Ox O2 Delivery O2 Flow Rate FiO2 01/19/18 12:29 98.5 74 18 109/59 (76) 98 01/19/18 08:00 98.6 65 17 95/52 (66) 95 01/19/18 04:00 99.3 71 18 118/57 (77) 95 01/19/18 00:00 99.4 69 17 101/58 (72) 95 01/18/18 21:29 Nasal Cannula 3.00 01/18/18 20:00 99.0 72 18 121/56 (77) 94 01/18/18 16:30 98.3 67 17 128/58 (81) 95 01/18/18 16:10 81 01/18/18 15:00 72 01/18/18 15:00 98.7 67 18 100/51 (67) 95 01/18/18 14:01 82 I/O 01/18/18 01/18/18 01/18/18 01/19/18 01/19/18 01/19/18 07:00 15:00 23:00 07:00 15:00 23:00 Intake Total 240 ml 738 ml Output Total 500 ml 450 ml Balance -260 ml 288 ml Intake Oral 240 ml 480 ml IV Total 258 ml Output Urine Total 500 ml 450 ml # Voids 2 2 # Bowel Movements 0 0 Result Diagram: 01/19/18 1150 01/17/18 0515 Imaging Last 24 hours Impressions Lower Extremity CT 01/16/18 0000 Signed Impressions: Service Date/Time: December 09:13 - CONCLUSION: 1. Medial condylar fracture which is only partially visualized due to significant artifact from the patient's prosthesis. 2. Status post total knee arthroplasty. 3. Soft tissue inflammation which may be related to recent replacement and or trauma. Omid Garcia MD Objective Remarks Dressing saturated and changed. No dehiscence. EHL/TA/G intact. 2+ pedal pulse. Knee immobilizer in place. + SILT distally. Calf is soft. No SOB or labored breathing. Assessment & Plan Assessment and Plan Postop day #4 status post left total knee arthroplasty, postoperative pulmonary embolism New postoperative minimally displaced vertically oriented medial condylar fracture. (DOI: 01/16/18) Plan: heparin drip, managed by medical team Toe-touch weightbearing left lower extremity. Canvas knee splint at all times. Reinforced dressing. Expect discharge to half-way facility when stable. Will continue with conservative management of distal femur fracture. Will follow closely. Patient aware ORIF may be necessary if fracture were to displace. Stanley Olivares Jr., MD Jan 19, 2018 14:01
[2018-01-19] MEDS ORDERED: SODIUM CHLOR 0.9% 250 ML INJ 250 ML IV ONE (15:30)
[2018-01-19 17:02] LABS: HEMATOCRIT 22.3 % (35.0-46.0); HEMOGLOBIN 7.4 GM/DL (11.6-15.3)
[2018-01-20] VITALS (14 sets, daily range): BP systolic 116–158; BP diastolic 64–89; PULSE 78–92; RESP 16–18; TEMP 97.8–99.1; O2SAT 93–100
[2018-01-20] MEDS: LEVOTHYROXINE SODIUM 50 MCG TAB PO SCH (04:03)
[2018-01-20 05:35] LABS: HEMATOCRIT 21.1 % (35.0-46.0); HEMOGLOBIN 7.1 GM/DL (11.6-15.3); MEAN CELL VOLUME 76.8 FL (80.0-100.0); MEAN CORPUSCULAR HEMOGLOBIN 25.8 PG (27.0-34.0); MEAN CORPUSCULAR HGB CONC 33.5 % (32.0-36.0); MEAN PLATELET VOLUME 7.9 FL (7.0-11.0); PLATELET COUNT 194 TH/MM3 (150-450); RED BLOOD COUNT 2.75 MIL/MM3 (4.00-5.30); RED CELL DISTRIBUTION WIDTH 15.5 % (11.6-17.2); WHITE BLOOD COUNT 10.5 TH/MM3 (4.0-11.0)
[2018-01-20 06:01] LABS: BICARBONATE 26.3 MEQ/L (21.0-32.0); CALCIUM 7.7 MG/DL (8.5-10.1); CREATININE 0.83 MG/DL (0.50-1.00); MAGNESIUM 2.4 MG/DL (1.5-2.5)
[2018-01-20] MEDS: MULTIVITAMINS/MINERALS THERAPEUTIC TAB PO SCH ×2 (07:53→20:22)
[2018-01-20] MEDS: DOCUSATE SODIUM 100 MG CAP PO SCH ×2 (07:53→20:22)
[2018-01-20] MEDS: APIXABAN 5 MG TABLET PO SCH (07:54)
[2018-01-20] MEDS: DILTIAZEM-CD 120 MG CAP ER PO SCH (07:57)
[2018-01-20] MEDS: ACETAMINOPHEN/HYDROcodone 325 MG/5 MG TAB PO PRN (10:56)
[2018-01-20] MEDS ORDERED: SODIUM CHLOR 0.9% 250 ML INJ 250 ML IV ONE (11:15)
[2018-01-20] MEDS ORDERED: FUROSEMIDE 20 MG/2 ML VIAL IV PUSH ONE (11:15)
--- NOTE | 2018-01-20 11:21 | HHI.PR ---
Subjective Remarks Patient reprots feeling very tired today. Having bloody sputum. No shortness of breath. Hemoglobin dropped to 7.1 Objective Vitals Vital Signs Date Time Temp Pulse Resp B/P (MAP) Pulse Ox O2 Delivery O2 Flow Rate FiO2 01/20/18 08:00 98.6 83 17 116/70 (85) 96 01/20/18 03:32 99.1 88 16 118/64 (82) 100 01/19/18 23:25 99.4 93 16 107/60 (76) 99 01/19/18 19:00 98.6 91 16 109/56 (73) 97 01/19/18 16:35 98.6 81 17 123/65 (84) 96 01/19/18 12:29 98.5 74 18 109/59 (76) 98 I/O 01/19/18 01/19/18 01/19/18 01/20/18 01/20/18 01/20/18 07:00 15:00 23:00 07:00 15:00 23:00 Intake Total 1250 ml Balance 1250 ml Intake Oral 1250 ml # Voids 2 6 2 Result Diagram: 01/20/18 04301/20/18 043 Objective Remarks GENERAL: Well-nourished, well-developed patient. CARDIOVASCULAR: Regular rate and rhythm without murmurs RESPIRATORY: Breath sounds equal bilaterally. No accessory muscle use. GASTROINTESTINAL: Abdomen soft, non-tender, nondistended. EXTREMITIES: Left leg is wrapped. In a knee immobilizer. Left leg with 2+ non pitting edema. Right leg normal. NEUROLOGICAL: Awake, alert, and oriented x 3. Non-focal. A/P Problem List: (1) Paroxysmal atrial fibrillation with rapid ventricular response ICD Code: I48.0 - Paroxysmal atrial fibrillation (2) Primary localized osteoarthrosis, lower leg ICD Code: M17.10 - Unilateral primary osteoarthritis, unspecified knee Assessment and Plan Pulmonary Embolism confirmed on CTA s/p Heparin drip and now has been switched to Eliquis 10mg po BID x 7 days then down to 5mg po BID. Will decrease the dose to 2.5 mg BID while waiting for Hematology recs. Patient is having hemoptysis. Consult Hematology for assistance. Hemoptysis: Likely secondary to PE. - See above. - Follow closely, may need Pulmonology consult if not resolving - Hematology consulted. Atrial fibrillation with RVR EKG confirmed atrial fibrillation with RVR Troponin remained within normal limits Conversion following Lopressor IV, amiodarone drip, now on Cardizem p.o. On Eliquis as above. s/p Left total knee arthroplasty continue pain control Continue physical therapy monitor H&H Medial condyle fracture, status post fall Ortho states patient is non surgical at this time Anemia: Acute blood loss Transfuse 2 units of PRBC today and monitor Hypertension, Hypothyroidism Continue outpatient medications Norvasc and Synthroid DVT prophylaxis on eliquis Discharge Planning Will need SNF once medically cleared. Problem Qualifiers (1) Primary localized osteoarthrosis, lower leg: Qualified Codes: M17.12 - Unilateral primary osteoarthritis, left knee Kimmy Garza MD Jan 20, 2018 11:21
--- NOTE | 2018-01-20 12:10 | PD.ORT.PN ---
Subjective Post Op Day #: 5 Subjective Remarks Patient resting in bed with minimal c/o left knee pain. Patient states her LLE is heavy secondary to the CKS. Patient denies CP or SOB. Objective Vitals Vital Signs Date Time Temp Pulse Resp B/P (MAP) Pulse Ox O2 Delivery O2 Flow Rate FiO2 01/20/18 11:32 98.5 91 18 124/65 94 01/20/18 08:00 98.6 83 17 116/70 (85) 96 01/20/18 03:32 99.1 88 16 118/64 (82) 100 01/19/18 23:25 99.4 93 16 107/60 (76) 99 01/19/18 19:00 98.6 91 16 109/56 (73) 97 01/19/18 16:35 98.6 81 17 123/65 (84) 96 01/19/18 12:29 98.5 74 18 109/59 (76) 98 I/O 01/19/18 01/19/18 01/19/18 01/20/18 01/20/18 01/20/18 07:00 15:00 23:00 07:00 15:00 23:00 Intake Total 1250 ml Balance 1250 ml Intake Oral 1250 ml # Voids 2 6 2 Result Diagram: 01/20/18 0431 01/20/18 0431 Imaging Last 24 hours Impressions Lower Extremity CT 01/16/18 0000 Signed Impressions: Service Date/Time: December 09:13 - CONCLUSION: 1. Medial condylar fracture which is only partially visualized due to significant artifact from the patient's prosthesis. 2. Status post total knee arthroplasty. 3. Soft tissue inflammation which may be related to recent replacement and or trauma. Omid aGrcia MD Procedures Left TKA Objective Remarks Dressing changed with no active drainage. New optifoam dressing applied. EHL/ TA/G intact. 2+ pedal pulse. Knee immobilizer in place. + SILT distally. Calf is soft. No SOB or labored breathing. Assessment & Plan Ortho Post Op Day #: 5 Problem List: Assessment and Plan Postop day #5 status post left total knee arthroplasty, postoperative pulmonary embolism New postoperative minimally displaced vertically oriented medial condylar fracture. (DOI: 01/16/18) Plan: CTA confirmed multiple pulmonary emboli. Heparin drip discontinued and patient started on Eliquis 10mg po BID x 7 days then down to 5mg po BID per cardiology, continue x 3 months. Toe-touch weightbearing left lower extremity. Canvas knee splint at all times. Daily dressing changes only if saturated. Maintain dressing if no drainage. Expect discharge to [facility] facility when stable. Will continue with conservative management of distal femur fracture. Will follow closely. Patient aware ORIF may be necessary if fracture were to displace. F/U in the office as previously scheduled with Dr. Flynn or FELIX Meyers Daniel Scott ARNP Jan 20, 2018 12:10
[2018-01-20] MEDS: SODIUM CHLOR 0.9% 1000 ML INJ 1,000 ML IV SCH ×2 (13:00→20:23)
[2018-01-20] MEDS ORDERED: PILL SPLITTER OTHER PRN (14:45)
[2018-01-20] MEDS ORDERED: APIXABAN 5 MG TABLET PO SCH (21:00)
[2018-01-21] MEDS: ACETAMINOPHEN/HYDROcodone 325 MG/5 MG TAB PO PRN ×3 (01:11→21:36)
[2018-01-21 04:30] VITALS: BP 117/60; PULSE 72; RESP 17; TEMP 98.6; O2SAT 99
[2018-01-21] MEDS: LEVOTHYROXINE SODIUM 50 MCG TAB PO SCH (04:57)
[2018-01-21 05:15] LABS: HEMATOCRIT 26.7 % (35.0-46.0); MEAN CELL VOLUME 79.3 FL (80.0-100.0); MEAN CORPUSCULAR HEMOGLOBIN 26.9 PG (27.0-34.0); MEAN CORPUSCULAR HGB CONC 33.9 % (32.0-36.0); MEAN PLATELET VOLUME 7.6 FL (7.0-11.0); PLATELET COUNT 213 TH/MM3 (150-450); RED BLOOD COUNT 3.37 MIL/MM3 (4.00-5.30); RETIC # 102.8 MIL/L (20.0-150.0); RETIC % 3.1 % (0.4-3.0); WHITE BLOOD COUNT 10.8 TH/MM3 (4.0-11.0)
[2018-01-21 05:30] LABS: ALBUMIN 2.1 GM/DL (3.4-5.0); ALT (GPT) 30 U/L (10-53); AST (GOT) 39 U/L (15-37); BICARBONATE 28.1 MEQ/L (21.0-32.0); BLOOD UREA NITROGEN 10 MG/DL (7-18); CALCIUM 7.7 MG/DL (8.5-10.1); CHLORIDE 105 MEQ/L (98-107); CREATININE 0.73 MG/DL (0.50-1.00); GLOMERULAR FILTRATION RATE 92 ML/MIN (>89); GLUCOSE,RANDOM 95 MG/DL (74-106); IRON (FE) 33 MCG/DL (50-170); SODIUM (NA) 141 MEQ/L (136-145)
[2018-01-21 05:54] LABS: % SATURATION IRON PROFILE 17.1 % (20-50); ALKALINE PHOSPHATASE 76 U/L (45-117); FERRITIN 162 NG/ML (8-252); FOLATE 13.1 NG/ML (3.1-17.5); TOTAL IRON BINDING CAPACITY 193 MCG/DL (250-450); TOTAL PROTEIN 5.7 GM/DL (6.4-8.2)
--- NOTE | 2018-01-21 07:42 | MB ---
cc: Rena Bergman MD DATE: 01/20/2018 REASON FOR CONSULTATION: Consult requested by hospitalist for evaluation of anemia in a patient who has pulmonary embolism and has been on Eliquis. HISTORY OF PRESENT ILLNESS: Magnolia is an 87-year-old female. She has a history of hypertension, hypothyroidism, and arthritis. She had severe left knee arthritis and was admitted to the hospital on 01/15/2018 for left knee surgery. The patient has tolerated surgery well. The patient had left knee replacement. She was placed on prophylactic Lovenox. Two days after the surgery on 01/17/2018, she developed atrial fibrillation with a rapid ventricular response. [facility] was called and she was transferred to the CICU. Cardiology was consulted. Part of the workup for atrial fibrillation, a D-dimer was ordered. The D-dimer came back very high. She had a V/Q scan which showed a high probability for pulmonary embolism. A CT angiogram of the chest was ordered, which confirmed multiple pulmonary emboli seen on both sides. She was started on IV heparin. This was transitioned to full dose Eliquis 10 mg twice a day, 2 days ago. The patient's hemoglobin is steadily dropping. A preoperative CBC was completely normal on 12/09/2017. Hemoglobin was 12.1. She underwent surgery on 01/15/2018 and postop blood test showed that the hemoglobin dropped to 9.3. Two days after the surgery, the hemoglobin dropped further to 7.4. The patient stated that she was bleeding at the surgical site. Her surgical dressing was soaked with blood that required a change of the dressing. She had a CT of the left leg on 01/16/2018 due to the fall. There was soft tissue inflammation noted due to the recent replacement and a medial condylar fracture noted, which was only partially visualized due to the significant artifact. The patient's left thigh is swollen. She denies any blood in the stool. In fact, she said that she had not looked at her stool. The patient's hemoglobin dropped today to 7.1. A blood transfusion has been ordered and she already had received 2 units. I have been asked to see the patient for further evaluation of the anemia. The patient has been having hemoptysis. Her Eliquis has been cut back to 2.5 mg twice a day. The patient states that she has been spitting up red blood since yesterday. She has been complaining of swelling and discomfort of the left leg, especially the left thigh. The rest of the review of systems is negative. PAST MEDICAL HISTORY: Hypertension, hypothyroidism, arthritis. PAST SURGICAL HISTORY: Recent left knee replacement, hysterectomy, benign tumors were removed from hip, breast and right eye. ALLERGIES: LICORICE. MEDICATIONS: 1. Multivitamin. 2. Colace. 3. Eliquis. 4. Cardizem. 5. Synthroid. 6. Magalia. 7. Zofran. FAMILY HISTORY: None for malignancy. SOCIAL HISTORY: She does not smoke cigarettes, does not drink alcohol. PHYSICAL EXAMINATION: GENERAL: A well-developed, female in no apparent distress. VITAL SIGNS: Temperature 98.7, heart rate is 92, blood pressure is 122/70, O2 saturation 94%. HEENT: PERRLA. EOMI, anicteric. No oral lesions noted. NECK: No lymphadenopathy noted. LUNGS: Clear. No wheezing, rhonchi or rales. HEART: Regular rate and rhythm. ABDOMEN: Soft, nontender. EXTREMITIES: Left knee is in the brace from recent surgery. The left thigh is considerably swollen compared to the right thigh. NEUROLOGIC: Awake, alert, oriented x 3. SKIN: No significant lesions noted. ASSESSMENT: 1. Provoked bilateral pulmonary embolism. 2. Anemia due to the blood loss from recent surgery, as well as more bleeding since she has been placed on anticoagulation. 3. New onset atrial fibrillation with rapid ventricular response, managed by cardiology. 4. Swelling of the left thigh noted. PLAN: I have reviewed her available records and I have discussed with the patient regarding the anemia. Prior to the surgery on 09/10/2017, the preop lab showed no anemia with a hemoglobin of 12.1. A postop CBC showed that the hemoglobin had dropped to 9.3. She was placed on heparin and Eliquis and her hemoglobin had dropped to 7.1. The patient stated that she was bleeding at the surgical site. Her dressing was soaked with blood. It is unclear how much blood she has lost at the surgical site. The patient states the dressing was soaked with blood. I could not find in the records about the quantity of the blood loss. She already had received 2 units of blood transfusion. No iron studies were ordered prior to the blood transfusion nor any orders were put in to find the cause of the anemia prior to the blood transfusion. I will order the B12, folate, iron studies, haptoglobin, reticulocyte count, LDH and total bilirubin. I do not think that she has any hemolysis. The most likely cause of acute anemia is due to blood loss from surgery, as well as from anticoagulation. I have recommended to stop the Eliquis. The patient already had received tonight's Eliquis dose. Therefore tomorrow morning at 8 o'clock, we will start her on heparin drip without any bolus doses. It would be easy to monitor her bleeding with the heparin infusion. We will check stool for occult blood to make sure that she does not have any GI bleeding with the anticoagulation. I will also get the Doppler ultrasound of both legs to evaluate for DVT of the lower legs. If the Doppler ultrasound is negative, then I will get the CAT scan of the left lower extremity to evaluate for any bleeding into the left thigh. The left thigh is significantly swollen compared to the right. I have discussed this with the patient and she had agreed with the plan. Further recommendations will be based on the hospital stay. Thank you for asking my opinion. Rick Bergman MD AJMonica/BARBARA , 12:06 AM , 07:41 AM MTDD
[2018-01-21 08:00] VITALS: BP 120/73; PULSE 73; PULSE 86; RESP 17; TEMP 98.2; O2SAT 98
[2018-01-21] MEDS ORDERED: HEPARIN-D5W 25,000 U/250 ML 250 ML IV PRN (08:00)
[2018-01-21] MEDS: DOCUSATE SODIUM 100 MG CAP PO SCH ×2 (08:09→21:36)
[2018-01-21] MEDS: DILTIAZEM-CD 120 MG CAP ER PO SCH (08:09)
[2018-01-21] MEDS: MULTIVITAMINS/MINERALS THERAPEUTIC TAB PO SCH ×2 (08:10→21:36)
[2018-01-21] MEDS: SODIUM CHLOR 0.9% 1000 ML INJ 1,000 ML IV SCH ×2 (09:00→18:07)
[2018-01-21 09:35] LABS: % SATURATION IRON PROFILE 8.4 % (20-50); IRON (FE) 17 MCG/DL (50-170); TOTAL IRON BINDING CAPACITY 203 MCG/DL (250-450)
--- NOTE | 2018-01-21 10:18 | RADRPT ---
EXAM DATE/TIME: 01/21/2018 08:55 [facility] COMPARISON: No previous studies available for comparison. INDICATIONS : Bilateral leg swelling. Left leg pain. MEDICAL HISTORY : Hypertension. Gastroesophageal reflux disease. Thyroid disease. Ectopic . SURGICAL HISTORY : Hysterectomy. Left knee surgery. Right breast tumor removed. ENCOUNTER: Initial ACUITY: 2 day PAIN SCORE: 5/10 LOCATION: Bilateral leg. TECHNIQUE: Venous ultrasound of the left and right leg was performed from the inguinal ligament to the proximal calf. Real-time, color Doppler and spectral tracing, compression and augmentation techniques were us ed. FINDINGS: RIGHT LEG: There is normal compressibility of the deep venous system from the inguinal region to the proximal ca lf. No echogenic clot is seen in the lumen of the common femoral, femoral, popliteal, and posterior tibial veins. There is a normal response of the venous system to proximal and distal augmentation an d respiration. LEFT LEG: There is normal compressibility of the deep venous system from the inguinal region to the proximal ca lf. No echogenic clot is seen in the lumen of the common femoral, femoral, popliteal, and posterior tibial veins. There is a normal response of the venous system to proximal and distal augmentation an d respiration. CONCLUSION: No DVT. Gabe Davis Jr., MD on January 21, 2018 at 10:14 Board Certified Radiologist. This report was verified electronically.
--- NOTE | 2018-01-21 11:38 | HHI.PR ---
Subjective Remarks Patient reports she is feeling better today. Inquiring about when she will get physical therapy today. No dizziness. No more hemoptysis. Objective Vitals Vital Signs Date Time Temp Pulse Resp B/P (MAP) Pulse Ox O2 Delivery O2 Flow Rate FiO2 01/21/18 08:00 86 01/21/18 08:00 98.2 73 17 120/73 (89) 98 01/21/18 04:30 98.6 72 17 117/60 (79) 99 01/20/18 23:55 98.9 78 17 152/68 (96) 97 01/20/18 20:45 98.7 85 17 148/72 (97) 95 01/20/18 20:00 84 01/20/18 17:49 98.7 92 18 122/70 94 01/20/18 16:00 98.1 84 17 158/75 (102) 97 01/20/18 15:20 98.8 87 18 153/89 96 01/20/18 15:10 98.1 84 16 158/75 (102) 97 01/20/18 15:00 98.1 83 16 158/75 96 01/20/18 14:27 98.9 84 16 130/70 95 01/20/18 12:00 98.5 91 17 124/65 (84) 93 01/20/18 11:53 97.8 80 18 136/70 95 I/O 01/20/18 01/20/18 01/20/18 01/21/18 01/21/18 01/21/18 07:00 15:00 23:00 07:00 15:00 23:00 Intake Total 400 ml 880 ml 480 ml Balance 400 ml 880 ml 480 ml Intake Oral 480 ml 480 ml Packed Cells 400 ml 400 ml # Voids 2 5 2 # Bowel Movements 2 0 Result Diagram: 01/21/18 0345 01/21/18 0345 Objective Remarks GENERAL: Well-nourished, well-developed patient. CARDIOVASCULAR: Regular rate and rhythm without murmurs RESPIRATORY: Breath sounds equal bilaterally. No accessory muscle use. GASTROINTESTINAL: Abdomen soft, non-tender, nondistended. EXTREMITIES: Left leg is wrapped. In a knee immobilizer. Left leg swelling improved compared to yesterday. Right leg normal. NEUROLOGICAL: Awake, alert, and oriented x 3. Non-focal. A/P Problem List: (1) Paroxysmal atrial fibrillation with rapid ventricular response ICD Code: I48.0 - Paroxysmal atrial fibrillation (2) Primary localized osteoarthrosis, lower leg ICD Code: M17.10 - Unilateral primary osteoarthritis, unspecified knee Assessment and Plan 87-year-old female with: Pulmonary Embolism confirmed on CTA patient was on heparin and transitioned to Eliquis. However she was experiencing bleeding at the surgical site and hemoptysis, Therefore she was switched back to heparin. Appreciate hematology input. Decision on long-term anticoagulant pending hospitals course and resolution of bleeding. Hemoptysis: Likely secondary to PE. Resolved. - See above. - Follow closely Acute blood loss anemia: Secondary to bleeding from surgical site and hemoptysis. Patient was symptomatic, status post 2 units of PRBC transfusion. Appreciate hematology following. Iron, TIBC, and % saturation all low. Ferritin normal. Defer to hematology on whether or not she would benefit from iron supplementation. CT of the lower extremity per hematology to rule out further bleeding. Atrial fibrillation with RVR EKG confirmed atrial fibrillation with RVR Troponin remained within normal limits Conversion following Lopressor IV, amiodarone drip, now on Cardizem p.o. Cardiology followed the patient. On heparin as above. [id number] score greater than 5. Will need long-term anticoagulation to reduce the risk of stroke. s/p Left total knee arthroplasty continue pain control Continue physical therapy Had issues with bleeding at the surgical site. Orthopedics aware. Dressing changes and monitor H&H Medial condyle fracture, status post fall Ortho states patient is non surgical at this time. However may need intervention based on progress. Hypertension, Hypothyroidism Continue outpatient medications Norvasc and Synthroid DVT prophylaxis on heparin Discharge Planning Will need SNF once medically cleared. Problem Qualifiers (1) Primary localized osteoarthrosis, lower leg: Qualified Codes: M17.12 - Unilateral primary osteoarthritis, left knee Kimmy Garza MD Jan 21, 2018 11:37
[2018-01-21 12:00] VITALS: BP 134/73; PULSE 75; PULSE 82; RESP 17; TEMP 98.2; O2SAT 98
--- NOTE | 2018-01-21 12:17 | PD.ONC.PN ---
Subjective Subjective Remarks Afebrile overnight. Patient resting in bed in nad. Still having pain/swelling in left leg/thigh. Objective Data Date Time Temp Pulse Resp B/P (MAP) Pulse Ox O2 Delivery O2 Flow Rate FiO2 01/21/18 12:00 98.2 75 17 134/73 (93) 98 01/21/18 08:00 86 01/21/18 08:00 98.2 73 17 120/73 (89) 98 01/21/18 04:30 98.6 72 17 117/60 (79) 99 01/20/18 23:55 98.9 78 17 152/68 (96) 97 01/20/18 20:45 98.7 85 17 148/72 (97) 95 01/20/18 20:00 84 01/20/18 17:49 98.7 92 18 122/70 94 01/20/18 16:00 98.1 84 17 158/75 (102) 97 01/20/18 15:20 98.8 87 18 153/89 96 01/20/18 15:10 98.1 84 16 158/75 (102) 97 01/20/18 15:00 98.1 83 16 158/75 96 01/20/18 14:27 98.9 84 16 130/70 95 01/21/18 01/21/18 01/21/18 07:00 15:00 23:00 Intake Total 480 ml Balance 480 ml Result Diagram: 01/21/18 0345 01/21/18 0345 Laboratory Results Laboratory Tests Test 01/21/18 03:45 White Blood Count 10.8 TH/MM3 Red Blood Count 3.37 MIL/MM3 Hemoglobin 9.0 GM/DL Hematocrit 26.7 % Mean Corpuscular Volume 79.3 FL Mean Corpuscular Hemoglobin 26.9 PG Mean Corpuscular Hemoglobin Concent 33.9 % Red Cell Distribution Width 16.0 % Platelet Count 213 TH/MM3 Mean Platelet Volume 7.6 FL Reticulocyte Count 3.1 % Absolute Reticulocyte Count 102.8 MIL/L Haptoglobin 284 MG/DL Activated Partial Thromboplast Time 29.8 SEC Blood Urea Nitrogen 10 MG/DL Creatinine 0.73 MG/DL Random Glucose 95 MG/DL Total Protein 5.7 GM/DL Albumin 2.1 GM/DL Calcium Level 7.7 MG/DL Alkaline Phosphatase 76 U/L Aspartate Amino Transf (AST/SGOT) 39 U/L Alanine Aminotransferase (ALT/SGPT) 30 U/L Lactate Dehydrogenase 196 U/L Total Bilirubin 1.0 MG/DL Sodium Level 141 MEQ/L Potassium Level 3.6 MEQ/L Chloride Level 105 MEQ/L Carbon Dioxide Level 28.1 MEQ/L Anion Gap 8 MEQ/L Estimat Glomerular Filtration Rate 92 ML/MIN Iron Level 33 MCG/DL Total Iron Binding Capacity 193 MCG/DL Percent Iron Saturation 17.1 % Ferritin 162 NG/ML Vitamin B12 Level 469 PG/ML Folate 13.1 NG/ML Imaging Studies Last 24 hours Impressions Lower Extremity Ultrasound 01/21/18 0800 Signed Impressions: Service Date/Time: Sunday, January 21, 2018 08:55 - CONCLUSION: No DVT. Gabe Davis Jr., MD Administered Medications Medications (Trade) Dose Ordered Sig/Leo Route PRN Reason Start Time Stop Time Status Last Admin Dose Admin Levothyroxine Sodium (Synthroid) 50 mcg DAILY@0600 PO 01/16/18 06:00 01/21/18 04:57 Sodium Chloride 1,000 ml @ 100 mls/hr Q10H IV 01/15/18 13:00 01/18/18 08:53 Acetaminophen/ Hydrocodone Bitart ([place] 5-325 Mg) 1 tab Q4H PRN PO PAIN LESS THAN 5 ON SCALE 01/15/18 12:30 01/21/18 01:11 Acetaminophen/ Hydrocodone Bitart ([place] 5-325 Mg) 2 tab Q4H PRN PO PAIN SCALE 5 TO 10 01/15/18 12:30 01/21/18 08:42 Multivitamins/ Minerals Therapeutic (Theragran M Tab) 1 tab BID PO 01/16/18 21:00 03/17/18 20:59 01/21/18 08:10 Ondansetron HCl (Zofran Inj) 4 mg Q6H PRN IVP NAUSEA OR VOMITING 01/15/18 12:30 01/17/18 14:20 Docusate Sodium (Colace) 100 mg BID PO 01/16/18 21:00 01/21/18 08:09 Magnesium Hydroxide (Milk Of Magnesia Liq) 30 ml DAILY PRN PO CONSTIPATION 01/15/18 12:30 01/18/18 20:08 Morphine Sulfate (Morphine Inj) 2 mg Q3H PRN IV PUSH pain greater than 5 4/18/18 13:30 01/17/18 16:43 Amiodarone HCl 450 mg/Sodium Chloride 250 ml @ 33.33 mls/ hr Q7H31M PRN IV Per Protocol 01/17/18 15:13 01/17/18 23:00 Diltiazem HCl (Cardizem Cd) 120 mg DAILY PO 01/20/18 09:00 01/21/18 08:09 Apixaban (Eliquis) 2.5 mg BID PO 01/20/18 21:00 Future Hold 01/20/18 20:23 Heparin Sodium/ Dextrose 250 ml @ 16 mls/hr TITRATE PRN IV Coagulation Management 01/21/18 08:00 01/21/18 08:18 Objective Remarks GENERAL: elderly female, lying supine in bed resting. SKIN: Warm and dry. HEAD: Normocephalic. EYES: No injection or drainage. NECK: Supple, trachea midline. CARDIOVASCULAR: Regular rate and rhythm RESPIRATORY: Breath sounds equal bilaterally. No accessory muscle use. GASTROINTESTINAL: Abdomen soft, non-tender, nondistended. EXTREMITIES: No cyanosis. left leg in total knee immobilizer. swelling noted throughout the leg. distal leg is warm and well perfused. NEUROLOGICAL: No obvious focal deficit. Awake, alert, and oriented x3. Assessment/Plan Problem List: (1) Microcytic anemia ICD Codes: D50.9 - Iron deficiency anemia, unspecified Plan: 01/21: monitor hgb. check CT of left thigh to evaluate for internal bleeding. iron studies show low TIBC as well as low serum iron and % saturation. may benefit from additional IV iron (received ~500mg with the two units of blood she received). update: CT shows thigh hematoma. will place heparin on hold for now. --due to the blood loss from recent surgery, as well as more bleeding since she has been placed on anticoagulation. -B12 WNL (2) Pulmonary embolism ICD Codes: I26.99 - Other pulmonary embolism without acute cor pulmonale Plan: --on heparin gtt. Assessment 87y/o female with pulmonary embolism and anemia, s/p left knee replacement. history of hypertension, hypothyroidism, and arthritis. new onset atrial fibrillation Attending Statement The exam, history, and the medical decision-making described in the above note were completed with the assistance of the mid-level provider. I reviewed and agree with the findings presented. I attest that I had a [id number] encounter with the patient on the same day, and personally performed and documented my assessment and findings in the medical record. C/O pain and swelling left thigh Doppler US = No DVT CT Left leg = intramuscular hematoma. Ortho to follow. Hopld Heparin and anticoag due to bleeding. Anemia is due to blood loss from surgery and anticoagulation. s/p PRBC. D/W DR Garza. monitor cbc. Nasreen Salazar Jan 21, 2018 12:17 Rick Bergman MD Jan 21, 2018 22:41
--- NOTE | 2018-01-21 13:23 | PD.ORT.PN ---
Subjective Subjective Remarks Patient not in room. Taken to CT for exam. Objective Vitals Vital Signs Date Time Temp Pulse Resp B/P (MAP) Pulse Ox O2 Delivery O2 Flow Rate FiO2 01/21/18 12:00 98.2 75 17 134/73 (93) 98 01/21/18 08:00 86 01/21/18 08:00 98.2 73 17 120/73 (89) 98 01/21/18 04:30 98.6 72 17 117/60 (79) 99 01/20/18 23:55 98.9 78 17 152/68 (96) 97 01/20/18 20:45 98.7 85 17 148/72 (97) 95 01/20/18 20:00 84 01/20/18 17:49 98.7 92 18 122/70 94 01/20/18 16:00 98.1 84 17 158/75 (102) 97 01/20/18 15:20 98.8 87 18 153/89 96 01/20/18 15:10 98.1 84 16 158/75 (102) 97 01/20/18 15:00 98.1 83 16 158/75 96 01/20/18 14:27 98.9 84 16 130/70 95 I/O 01/20/18 01/20/18 01/20/18 01/21/18 01/21/18 01/21/18 07:00 15:00 23:00 07:00 15:00 23:00 Intake Total 400 ml 880 ml 480 ml Balance 400 ml 880 ml 480 ml Intake Oral 480 ml 480 ml Packed Cells 400 ml 400 ml # Voids 2 5 2 # Bowel Movements 2 0 Result Diagram: 01/21/18 0345 01/21/18 0345 Imaging Last 24 hours Impressions Lower Extremity CT 01/16/18 0000 Signed Impressions: Service Date/Time: December 09:13 - CONCLUSION: 1. Medial condylar fracture which is only partially visualized due to significant artifact from the patient's prosthesis. 2. Status post total knee arthroplasty. 3. Soft tissue inflammation which may be related to recent replacement and or trauma. Omid Garcia MD Procedures Left TKA Assessment & Plan Assessment and Plan Postop day #5 status post left total knee arthroplasty, postoperative pulmonary embolism New postoperative minimally displaced vertically oriented medial condylar fracture. (DOI: 01/16/18) Plan: CTA confirmed multiple pulmonary emboli. Heparin drip discontinued and patient started on Eliquis 10mg po BID x 7 days then down to 5mg po BID per cardiology, continue x 3 months. Toe-touch weightbearing left lower extremity. Canvas knee splint at all times. Daily dressing changes only if saturated. Maintain dressing if no drainage. Expect discharge to residential facility when stable. Will continue with conservative management of distal femur fracture. Will follow closely. Patient aware ORIF may be necessary if fracture were to displace. F/U in the office as previously scheduled with Dr. Flynn or [facility]ers Hematology on case to determine cause for anemia. Current notes, labs, vitals, and studies reviewed. Patient appears stable. Unable to assess patient today as patient is off floor in CT. Will follow these results and see patient tomorrow. Matthew Tran Jan 21, 2018 13:23
--- NOTE | 2018-01-21 13:53 | RADRPT ---
EXAM DATE/TIME: 01/21/2018 13:07 [facility] COMPARISON: No previous studies available for comparison. INDICATIONS : Trauma to knee ,hematoma IV CONTRAST: 65 cc Omnipaque 350 (iohexol) IV RADIATION DOSE: 24.18 CTDIvol (mGy) MEDICAL HISTORY : Hypertension. SURGICAL HISTORY : Hysterectomy. ENCOUNTER: Initial ACUITY: 2 days PAIN SCALE: 6/10 LOCATION: Left Femur TECHNIQUE: Volumetric scanning of the femur was performed. Using automated exposure control and adjustment of t he mA and/or kV according to patient size, radiation dose was kept as low as reasonably achievable to obtain optimal diagnostic quality images. DICOM format image data is available electronically for review and comparison. FINDINGS: Ill-defined soft tissue edema in the superficial adipose layer and intramuscular soft tissues of the thigh. A lobulated heterogeneous density is seen within the vastus intermedius muscle measuring appro ximately 3 x 2 cm in axial dimensions at the level of the proximal to mid thigh. No evidence of hyper intensity to suggest active extravasation. Femoral artery demonstrates diffuse calcification but is w idely patent. Total knee prosthesis in place and within normal limits. Mild osteoarthritic findings of the hip. No evidence of fracture. Alignment within normal limits. CONCLUSION: Elongated heterogeneous density of the vastus medialis muscle at the mid thigh indicating possible in tramuscular hematoma. Prominent surrounding soft tissue edema. Gerardo Ramsey MD on January 21, 2018 at 13:42 Board Certified Radiologist. This report was verified electronically.
[2018-01-21 14:16] LABS: HEMATOCRIT 28.6 % (35.0-46.0); HEMOGLOBIN 9.6 GM/DL (11.6-15.3)
[2018-01-21 15:21] LABS: INTERNATIONAL NORMALIZED RATIO 1.1 RATIO; PROTHROMBIN TIME - PATIENT 11.4 SEC (9.8-11.6)
[2018-01-21 16:00] VITALS: BP 148/70; PULSE 69; RESP 17; TEMP 97.5; O2SAT 96
[2018-01-21 17:02] VITALS: PULSE 89
[2018-01-21 20:40] VITALS: BP 124/63; PULSE 85; RESP 18; TEMP 98.6; O2SAT 97
[2018-01-21 21:32] LABS: HEMATOCRIT 30.8 % (35.0-46.0); HEMOGLOBIN 10.4 GM/DL (11.6-15.3)
[2018-01-22 00:05] VITALS: BP 118/63; PULSE 85; RESP 17; TEMP 99.1; O2SAT 98
[2018-01-22 04:35] VITALS: BP 118/61; PULSE 80; RESP 17; TEMP 98.5; O2SAT 99
[2018-01-22] MEDS: SODIUM CHLOR 0.9% 1000 ML INJ 1,000 ML IV SCH ×3 (05:00→19:45)
[2018-01-22] MEDS: LEVOTHYROXINE SODIUM 50 MCG TAB PO SCH (06:22)
[2018-01-22 07:10] LABS: BASOPHIL % 0.4 % (0.0-2.0); EOSINOPHIL # 0.4 TH/MM3 (0-0.4); EOSINOPHIL % 3.9 % (0.0-4.0); HEMATOCRIT 28.1 % (35.0-46.0); HEMOGLOBIN 9.3 GM/DL (11.6-15.3); LYMPH % 15.4 % (9.0-44.0); LYMPHOCYTE # 1.7 TH/MM3 (1.0-4.8); MEAN CELL VOLUME 79.6 FL (80.0-100.0); MEAN CORPUSCULAR HEMOGLOBIN 26.5 PG (27.0-34.0); MEAN CORPUSCULAR HGB CONC 33.3 % (32.0-36.0); MEAN PLATELET VOLUME 7.6 FL (7.0-11.0); MONO % 9.9 % (0.0-8.0); MONOCYTE # 1.1 TH/MM3 (0-0.9); NEUT % 70.4 % (16.0-70.0); PLATELET COUNT 257 TH/MM3 (150-450); RED BLOOD COUNT 3.53 MIL/MM3 (4.00-5.30); RED CELL DISTRIBUTION WIDTH 16.4 % (11.6-17.2); WHITE BLOOD COUNT 11.4 TH/MM3 (4.0-11.0)
[2018-01-22 08:04] VITALS: BP 107/65; PULSE 86; RESP 17; TEMP 98.4; O2SAT 100
[2018-01-22] MEDS: MULTIVITAMINS/MINERALS THERAPEUTIC TAB PO SCH ×2 (08:04→19:43)
[2018-01-22] MEDS: DOCUSATE SODIUM 100 MG CAP PO SCH ×2 (08:05→19:43)
[2018-01-22] MEDS: ACETAMINOPHEN/HYDROcodone 325 MG/5 MG TAB PO PRN ×3 (08:05→23:46)
[2018-01-22] MEDS: DILTIAZEM-CD 120 MG CAP ER PO SCH (08:05)
--- NOTE | 2018-01-22 10:34 | PD.ORT.PN ---
Subjective Post Op Day #: 6 Subjective Remarks Patient c/o mild knee pain today. Denies SOB or CP. Objective Vitals Vital Signs Date Time Temp Pulse Resp B/P (MAP) Pulse Ox O2 Delivery O2 Flow Rate FiO2 01/22/18 08:04 98.4 86 17 107/65 (79) 100 01/22/18 04:35 98.5 80 17 118/61 (80) 99 01/22/18 00:05 99.1 85 17 118/63 (81) 98 01/21/18 20:40 98.6 85 18 124/63 (83) 97 01/21/18 17:02 89 01/21/18 16:00 97.5 69 17 148/70 (96) 96 01/21/18 12:00 82 01/21/18 12:00 98.2 75 17 134/73 (93) 98 I/O 01/21/18 01/21/18 01/21/18 01/22/18 01/22/18 01/22/18 07:00 15:00 23:00 07:00 15:00 23:00 Intake Total 480 ml 592 ml 480 ml Balance 480 ml 592 ml 480 ml Intake Oral 480 ml 480 ml 480 ml IV Total 112 ml # Voids 2 7 2 # Bowel Movements 0 0 0 Result Diagram: 01/22/18 0500 01/21/18 0345 Other Results Laboratory Tests Test 01/21/18 13:59 Prothromb Time International Ratio 1.1 RATIO Prothrombin Time 11.4 SEC (9.8-11.6) Imaging Last 24 hours Impressions Lower Extremity CT 01/16/18 0000 Signed Impressions: Service Date/Time: December 09:13 - CONCLUSION: 1. Medial condylar fracture which is only partially visualized due to significant artifact from the patient's prosthesis. 2. Status post total knee arthroplasty. 3. Soft tissue inflammation which may be related to recent replacement and or trauma. Omid Garcia MD Procedures Left TKA Objective Remarks Dressing is C/D/I. + NVI. Mild knee swelling. No erythema. Mild thigh swelling. No tenderness or ecchymosis. Compartments soft. Calf is soft and nontender. Oxygen via nasal cannula. Assessment & Plan Ortho Post Op Day #: 6 Problem List: Assessment and Plan Postop day #6 status post left total knee arthroplasty, postoperative pulmonary embolism New postoperative minimally displaced vertically oriented medial condylar fracture. (DOI: 01/16/18) Plan: CTA confirmed multiple pulmonary emboli. Anticoagulation held for concerns for bleeding into the thigh Toe-touch weightbearing left lower extremity. Canvas knee splint at all times. Maintain dressing if no drainage. [facility]. Anticipatory discharge on if no complications after resuming anticoagulation. Will continue with conservative management of distal femur fracture. Will follow closely. Patient aware ORIF may be necessary if fracture were to displace. F/U in the office as previously scheduled with Dr. Flynn or [facility]EL[facility] Meyers Reviewed CT of lower extremity and in conjunction with physical exam today, we feel patient can resume full anticoagulation. Dr Flynn has call out to Board Certified Family Physician to discuss case. Matthew Tran Jan 22, 2018 10:34
[2018-01-22] MEDS: MORPHINE SULFATE 2 MG/ML SYRINGE IV PUSH PRN (10:35)
[2018-01-22 11:36] VITALS: BP 114/70; PULSE 95; RESP 18; TEMP 98.7; O2SAT 97
--- NOTE | 2018-01-22 11:44 | HHI.PR ---
Subjective Remarks Patient started physical therapy today. She states she was in lots of pain. Needed to take IV morphine as well as her pain medication orally before that. Patient is very tired at this time. Will need evaluation for placement at [facility]. Continue physical therapy and Occupational Therapy Discussed with case management and RN and patient Elongated heterogeneous density of the vastus medialis muscle at the mid thigh indicating possible intramuscular hematoma. Prominent surrounding soft tissue edema. Objective Vitals Vital Signs Date Time Temp Pulse Resp B/P (MAP) Pulse Ox O2 Delivery O2 Flow Rate FiO2 01/22/18 10:40 20 01/22/18 10:31 20 01/22/18 08:04 98.4 86 17 107/65 (79) 100 01/22/18 04:35 98.5 80 17 118/61 (80) 99 01/22/18 00:05 99.1 85 17 118/63 (81) 98 01/21/18 20:40 98.6 85 18 124/63 (83) 97 01/21/18 17:02 89 01/21/18 16:00 97.5 69 17 148/70 (96) 96 01/21/18 12:00 82 01/21/18 12:00 98.2 75 17 134/73 (93) 98 I/O 01/21/18 01/21/18 01/21/18 01/22/18 01/22/18 01/22/18 07:00 15:00 23:00 07:00 15:00 23:00 Intake Total 480 ml 592 ml 480 ml Balance 480 ml 592 ml 480 ml Intake Oral 480 ml 480 ml 480 ml IV Total 112 ml # Voids 2 7 2 # Bowel Movements 0 0 0 Result Diagram: 01/22/18 0500 01/21/18 0345 Other Results Laboratory Tests Test 01/19/18 11:50 01/19/18 16:31 01/20/18 04:31 01/21/18 03:45 Hemoglobin 7.3 GM/DL 7.4 GM/DL 7.1 GM/DL 9.0 GM/DL Hematocrit 22.1 % 22.3 % 21.1 % 26.7 % White Blood Count 10.5 TH/MM3 10.8 TH/MM3 Red Blood Count 2.75 MIL/MM3 3.37 MIL/MM3 Mean Corpuscular Volume 76.8 FL 79.3 FL Mean Corpuscular Hemoglobin 25.8 PG 26.9 PG Mean Corpuscular Hemoglobin Concent 33.5 % 33.9 % Red Cell Distribution Width 15.5 % 16.0 % Platelet Count 194 TH/MM3 213 TH/MM3 Mean Platelet Volume 7.9 FL 7.6 FL Blood Urea Nitrogen 10 MG/DL 10 MG/DL Creatinine 0.83 MG/DL 0.73 MG/DL Random Glucose 115 MG/DL 95 MG/DL Calcium Level 7.7 MG/DL 7.7 MG/DL Magnesium Level 2.4 MG/DL Sodium Level 138 MEQ/L 141 MEQ/L Potassium Level 3.4 MEQ/L 3.6 MEQ/L Chloride Level 104 MEQ/L 105 MEQ/L Carbon Dioxide Level 26.3 MEQ/L 28.1 MEQ/L Anion Gap 8 MEQ/L 8 MEQ/L Estimat Glomerular Filtration Rate 79 ML/MIN 92 ML/MIN Reticulocyte Count 3.1 % Absolute Reticulocyte Count 102.8 MIL/L Haptoglobin 284 MG/DL Activated Partial Thromboplast Time 29.8 SEC Total Protein 5.7 GM/DL Albumin 2.1 GM/DL Alkaline Phosphatase 76 U/L Aspartate Amino Transf (AST/SGOT) 39 U/L Alanine Aminotransferase (ALT/SGPT) 30 U/L Lactate Dehydrogenase 196 U/L Total Bilirubin 1.0 MG/DL Iron Level 33 MCG/DL Total Iron Binding Capacity 193 MCG/DL Percent Iron Saturation 17.1 % Ferritin 162 NG/ML Vitamin B12 Level 469 PG/ML Folate 13.1 NG/ML Test 01/21/18 13:59 01/21/18 20:42 01/22/18 05:00 Hemoglobin 9.6 GM/DL 10.4 GM/DL 9.3 GM/DL Hematocrit 28.6 % 30.8 % 28.1 % Prothrombin Time 11.4 SEC Prothromb Time International Ratio 1.1 RATIO Activated Partial Thromboplast Time 52.3 SEC 29.7 SEC Fibrinogen 522 mg/dL White Blood Count 11.4 TH/MM3 Red Blood Count 3.53 MIL/MM3 Mean Corpuscular Volume 79.6 FL Mean Corpuscular Hemoglobin 26.5 PG Mean Corpuscular Hemoglobin Concent 33.3 % Red Cell Distribution Width 16.4 % Platelet Count 257 TH/MM3 Mean Platelet Volume 7.6 FL Neutrophils (%) (Auto) 70.4 % Lymphocytes (%) (Auto) 15.4 % Monocytes (%) (Auto) 9.9 % Eosinophils (%) (Auto) 3.9 % Basophils (%) (Auto) 0.4 % Neutrophils # (Auto) 8.0 TH/MM3 Lymphocytes # (Auto) 1.7 TH/MM3 Monocytes # (Auto) 1.1 TH/MM3 Eosinophils # (Auto) 0.4 TH/MM3 Basophils # (Auto) 0.0 TH/MM3 CBC Comment DIFF FINAL Differential Comment Imaging Last Impressions Lower Extremity Ultrasound 01/21/18 0800 Signed Impressions: Service Date/Time: Sunday, January 21, 2018 08:55 - CONCLUSION: No DVT. Gabe Davis Jr., MD Lower Extremity CT 01/21/18 0000 Signed Impressions: Service Date/Time: Sunday, January 21, 2018 13:07 - CONCLUSION: Elongated heterogeneous density of the vastus medialis muscle at the mid thigh indicating possible intramuscular hematoma. Prominent surrounding soft tissue edema. Gerardo Ramsey MD Lung Scan- Nuclear Medicine 01/17/18 0000 Signed Impressions: Service Date/Time: Wednesday, January 17, 2018 15:16 - CONCLUSION: High probability for pulmonary embolism. Uriel Strickland MD FACR Chest X-Ray 01/17/18 0000 Signed Impressions: Service Date/Time: Wednesday, January 17, 2018 13:55 - CONCLUSION: Minimal parenchymal changes left base. Atelectasis versus early inflammatory process Uriel Strickland MD FACR CT Angiography 01/17/18 0000 Signed Impressions: Service Date/Time: Wednesday, January 17, 2018 18:43 - CONCLUSION: Multiple pulmonary emboli seen bilaterally. Baldo Canada MD Knee X-Ray 01/15/18 1226 Signed Impressions: Service Date/Time: Monday, January 15, 2018 13:50 - CONCLUSION: Status post total knee arthroplasty. Uriel Strickland MD Objective Remarks GENERAL: Awake alert and oriented 3 talkative and cooperative --appears to be in some mild distress SKIN: Warm and dry. HEAD: Atraumatic. Normocephalic. EYES: Pupils equal and round. No scleral icterus. No injection or drainage. Extraocular muscles are intact ENT: No nasal bleeding or discharge. Mucous membranes pink and moist. Tongue is midline NECK: Trachea midline. No JVD. Supple CARDIOVASCULAR: IRRegular rate and rhythm. S1-S2 no S3 or S4 RESPIRATORY: No accessory muscle use. Clear to auscultation. Breath sounds equal bilaterally. GASTROINTESTINAL: Abdomen soft, non-tender, nondistended. Hepatic and splenic margins not palpable. MUSCULOSKELETAL: Extremities without clubbing, cyanosis, or edema. No obvious deformities. Left lower extremity in brace NEUROLOGICAL: Awake and alert. No obvious cranial nerve deficits. Motor grossly within normal limits. 4 out of 5 muscle strength in the arms and legs. Normal speech. PSYCHIATRIC: Appropriate mood and affect; insight and judgment normal. 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 My MORTAR MIXER OPERATOR presence was necessary throughout this case for the manipulation and positioning of the surgical extremity. My MORTAR MIXER OPERATOR was assisting me throughout the duration of this procedure. The skill set of an Advance Registered Nurse Practitioner was medically necessary to complete this procedure. During the surgical case, the surgical services director was working at the back table and the Advance Registered Nurse Practitioner was directly assisting me. Operation and Findings: IMPLANTS: DePuy Attune: Patella: size 32. Femur, posterior stabilized size 5. Tibia, rotating platform size 5. Tibial insert, rotating platform, posterior stabilized size 10 mm thickness. ESTIMATED BLOOD LOSS: 150 cc TOURNIQUET TIME: 52 minutes at 250 mmHg pressure. JUSTIFICATION FOR PROCEDURE: The patient has end-stage osteoarthritis to the knee. There is an attached conservative measures pathway form in the chart that describes the nonoperative measures that were undertaken prior to consideration of surgical management. The patient understood the risks and benefits of surgical management. See my office notes for further details PROCEDURE: The patient was brought back to the operative theatre. Adequate anesthesia was obtained. The patient received intravenous vancomycin and Ancef. The lower extremity was prepped and draped in the usual sterile fashion.The leg was exsanguinated, the tourniquet was raised. A standard anterior incision was performed followed by medial parapatellar arthrotomy was performed. End-stage arthritis was identified. Osteotomy of the patella was performed. We drilled holes for the patella. We trialed the patella component. We placed an intramedullary guide into the distal femur. We ultimately resected 11 mm off of the distal femur in 5 degrees of valgus. The remnants of the ACL and PCL were resected. Osteotomy of the proximal tibia was performed, resecting 5 mm off of the medial side. This was done with 3 degrees of posterior slope using an extramedullary guide. The distal end of the guide was placed in the mid aspect of the ankle. The femur was sized, and four chamfer cuts were completed in 3 of external rotation. We then cut the central box in the distal femur to replace the PCL. We resected the remnants of the menisci and removed osteophytes off of the femur and tibia. We then trialed the knee. We found a mismatch in flexion and extension. Extension gap was looser than flexion. We decided to downsize the femur from the originally selected size 6 to a size 5 to allow for more room posteriorly. Once this was completed we found a much better flexion/extension gap tension. The knee was also tight laterally due to the significant preoperative valgus deformity. We released the iliotibial band which helped as most of the tightness was in extension rather than flexion. The knee felt well balanced at this point. We punched the tibia for the keel, and then used standard technique to cement in components. Excess cement was removed. We trialed the knee again and the final polyethylene thickness was chosen to provide extension to 0 degrees, and flexion of 140 degrees to gravity. The ligaments were appropriately balanced. Lateral release was not necessary to obtain excellent patellofemoral tracking. The tourniquet was released and adequate hemostasis was obtained. An intra- articular injection of a ropivacaine cocktail was injected. The posterior knee was inspected for excess cement, which was removed. The final polyethylene was put into position after thorough irrigation. We then closed deep fascia with a #2 Stratafix followed by skin with 2-0 Vicryl followed by kylee. Postop plan is to weight-bear as tolerated. DVT prophylaxis will be performed with Deedee, VICTORINA conrad, early mobilization, and Lovenox followed by aspirin. Gideon Flynn MD Jan 15, 2018 12:31 Medications and IVs Current Medications Lactated Ringer's 1,000 ml @ 30 mls/hr Q24H PRN IV SEE LABEL COMMENTS Last administered on 01/15/18at 08:00; Start 01/15/18 at 07:30; Stop 01/18/18 at 07:29 ; Status DC Sodium Chloride 500 ml @ 30 mls/hr [id number] PRN IV SEE LABEL COMMENTS; Start at 07:30; Stop 01/18/18 at 07:29; Status DC Metoprolol Tartrate (Lopressor) 25 mg SAFETY GLASS INSTALLER PRN PO SEE LABEL COMMENTS; Start 01/15/18 at 07:30; Stop 01/18/18 at 07:29; Status DC Povidone Iodine (Betadine 5% Antisepsis Kit) 1 applic SAFETY GLASS INSTALLER PRN EACH NARE SEE LABEL COMMENTS Last administered on 01/15/18at 07:50; Start 01/15/18 at 07:30 ; Stop 01/18/18 at 07:29; Status DC Chlorhexidine Gluconate (Chlorhexidine 2% Cloth) 3 pack SAFETY GLASS INSTALLER PRN TOPICAL SEE LABEL COMMENTS Last administered on 01/15/18at 07:30; Start 01/15/18 at 07:30 ; Stop 01/18/18 at 07:29; Status DC Insulin Human Regular (NovoLIN R INJ) See Protocol Table ... SAFETY GLASS INSTALLER PRN SQ SEE PROTOCOL TABLE; Start 01/15/18 at 07:30; Stop 01/18/18 at 07:29; Status DC Povidone Iodine (Betadine 7.5% Scrub) 1 applic ONCE TOPICAL ; Start 01/15/18 at 07:30; Stop 01/18/18 at 07:29; Status DC Chlorhexidine Gluconate (Hibiclens 4% Top Soln) 1 applic ONCE TOPICAL ; Start at 07:30; Stop 01/18/18 at 07:29; Status DC Dexamethasone Sodium Phosphate (Decadron Inj) 10 mg ONCE ONCE IV PUSH Last administered on 01/15/18at 08:10; Start 01/15/18 at 07:30; Stop 01/15/18 at 07:31 ; Status DC Cefazolin Sodium/ Dextrose 50 ml @ 100 mls/hr SAFETY GLASS INSTALLER IV Last administered on 01/15/18at 10:00; Start 01/15/18 at 07:30; Stop 01/18/18 at 07:29; Status DC Tranexamic Acid 909 mg/Sodium Chloride 109.09 ml @ 200 mls/ hr ONCE IV Last administered on 01/15/18at 10:21; Start 01/15/18 at 07:30; Stop 01/16/18 at 07:29 ; Status DC Ropivacaine 24.63 ml/Ketorolac Tromethamine 30 mg/Epinephrine HCl 0.5 mg/ Clonidine 80 mcg/ Sodium Chloride 100 ml @ 200 mls/hr ONCE P-ARTICULR Last administered on 01/15/18at 11:15; Start 01/15/18 at 07:30; Stop 01/16/18 at 07:29 ; Status DC Vancomycin/Sodium Chloride 200 ml @ 200 mls/hr SAFETY GLASS INSTALLER IV Last administered on 01/15/18at 09:22; Start 01/15/18 at 07:45; Stop 01/18/18 at 07:44; Status DC Midazolam HCl (Versed Inj) 2 mg STK-MED ONCE .ROUTE Last administered on at 09:25; Start 01/15/18 at 09:22; Stop 01/15/18 at 09:23; Status DC Bupivacaine Liposome (Exparel Pf 1.3% Inj) 20 ml STK-MED ONCE .ROUTE ; Start at 09:22; Stop 01/15/18 at 09:23; Status DC Acetaminophen 100 ml @ As Directed STK-MED ONCE IV ; Start 01/15/18 at 09:33; Stop 01/15/18 at 09:34; Status DC Fentanyl Citrate (fentaNYL INJ) 100 mcg STK-MED ONCE .ROUTE ; Start 01/15/18 at 09:33; Stop 01/15/18 at 09:34; Status DC Famotidine (Pepcid Inj) 20 mg STK-MED ONCE .ROUTE ; Start 01/15/18 at 09:33; Stop 01/15/18 at 09:34; Status DC Propofol 50 ml @ As Directed STK-MED ONCE .ROUTE ; Start 01/15/18 at 09:39; Stop 01/15/18 at 09:40; Status DC Bupivacaine HCl/ Dextrose (Marcaine Spinal Inj) 2 ml STK-MED ONCE .ROUTE ; Start 01/15/18 at 09:39; Stop 01/15/18 at 09:40; Status DC Gentamicin Sulfate (Gentamicin Inj) 240 mg STK-MED ONCE .ROUTE ; Start 01/15/18 at 09:55; Stop 01/15/18 at 09:56; Status DC Bupivacaine HCl/ Dextrose (Marcaine Spinal Inj) 2 ml STK-MED ONCE .ROUTE ; Start 01/15/18 at 10:15; Stop 01/15/18 at 10:16; Status DC Amlodipine Besylate (Norvasc) 10 mg DAILY PO ; Start 01/16/18 at 09:00; Stop at 15:09; Status DC Levothyroxine Sodium (Synthroid) 50 mcg DAILY@0600 PO Last administered on 01/22at 06:22; Start 01/16/18 at 06:00 Sodium Chloride 1,000 ml @ 100 mls/hr Q10H IV Last administered on 01/18/18at 08:53; Start 01/15/18 at 13:00 Cefazolin Sodium 1000 mg/Sodium Chloride 100 ml @ 200 mls/hr Q6H IV Last administered on 01/16/18at 06:20; Start 01/15/18 at 16:00; Stop 01/16/18 at 04:29 ; Status DC Miscellaneous Information (Post-op Orders (for Pharmacy)) STAT ONCE XX ; Start 01/15/18 at 12:30; Stop 01/15/18 at 13:22; Status DC Dexamethasone Sodium Phosphate (Decadron Inj) 10 mg ONCE ONCE IV Last administered on 01/16/18at 08:28; Start 01/16/18 at 07:45; Stop 01/16/18 at 07:46 ; Status DC Enoxaparin Sodium (Lovenox Inj) 40 mg Q24H SQ ; Start 01/16/18 at 12:00; Stop at 18:41; Status DC Acetaminophen/ Hydrocodone Bitart ([place] 5-325 Mg) 1 tab Q4H PRN PO PAIN LESS THAN 5 ON SCALE Last administered on 01/21/18at 01:11; Start 01/15/18 at 12:30 Acetaminophen/ Hydrocodone Bitart ([place] 5-325 Mg) 2 tab Q4H PRN PO PAIN SCALE 5 TO 10 Last administered on 01/22/18at 08:05; Start 01/15/18 at 12:30 Tranexamic Acid 909 mg/Sodium Chloride 109.09 ml @ 200 mls/ hr UNSCH IV Last administered on 01/15/18at 13:30; Start 01/15/18 at 12:30; Stop 01/15/18 at 13:05 ; Status DC Multivitamins/ Minerals Therapeutic (Theragran M Tab) 1 tab BID PO Last administered on 01/22/18at 08:04; Start 01/16/18 at 21:00; Stop 03/17/18 at 20:59 Ondansetron HCl (Zofran Inj) 4 mg Q6H PRN IVP NAUSEA OR VOMITING Last administered on 01/17/18at 14:20; Start 01/15/18 at 12:30 Docusate Sodium (Colace) 100 mg BID PO Last administered on 01/22/18 08:05; Start 01/16/18 at 21:00 Al Hydrox/Mg Hydrox/Simethicone (Mag-Al Plus Susp Liq) 30 ml Q6H PRN PO INDIGESTION; Start 01/15/18 at 12:30 Zolpidem Tartrate (Ambien) 5 mg HS PRN PO SLEEP; Start 01/15/18 at 12:30 Bisacodyl (Dulcolax Supp) 10 mg DAILY PRN RECTAL CONSTIPATION; Start 01/15/18 at 12:30 Magnesium Hydroxide (Milk Of Magnesia Liq) 30 ml DAILY PRN PO CONSTIPATION Last administered on 01/18/18at 20:08; Start 01/15/18 at 12:30 Naloxone HCl (Narcan Inj) 0.4 mg UNSCH PRN IV PUSH RESPIRATORY RATE LESS THAN 10; Start 01/15/18 at 12:30 Diphenhydramine HCl (Benadryl Inj) 25 mg Q6H PRN IV PUSH ITCHING; Start at 12:30 Morphine Sulfate (Morphine Inj) 2 mg Q3H PRN IV PUSH pain greater than 5 Last administered on 01/22/18at 10:35; Start 01/15/18 at 13:30 Miscellaneous Information ALL NURSING DEPARTME... UNSCH PRN .XX SEE LABEL COMMENTS; Start 01/15/18 at 12:48; Stop 01/16/18 at 12:47; Status DC Sodium Chloride 1,000 ml @ 999 mls/hr Q1H1M STAT IV Last administered on at 21:00; Start 01/15/18 at 20:53; Stop 01/15/18 at 21:53; Status DC Lactated Ringer's 1,000 ml @ As Directed STK-MED ONCE IV ; Start 01/15/18 at 12 :00; Stop 01/16/18 at 14:11; Status DC Phenylephrine HCl (Neosynephrine/ NS 1000 Mcg/10ml Syr) 1,000 mcg STK-MED ONCE IV ; Start 01/15/18 at 12:00; Stop 01/16/18 at 14:11; Status DC Ephedrine Sulfate (ePHEDrine/NS 25 MG/5 ML SYR) 25 mg STK-MED ONCE IV ; Start at 12:00; Stop 01/16/18 at 14:11; Status DC Propofol (Diprivan 200 Mg/20 ml Inj) 400 mg STK-MED ONCE IV ; Start 01/15/18 at 12:00; Stop 01/16/18 at 14:11; Status DC Enoxaparin Sodium (Lovenox Inj) 40 mg Q24H SQ Last administered on 01/16/18at 18 :44; Start 01/16/18 at 20:00; Stop 01/17/18 at 16:46; Status DC Metoprolol Tartrate (Lopressor Inj) 5 mg ONCE ONCE IV PUSH Last administered on 01/17/18at 11:16; Start 01/17/18 at 11:15; Stop 01/17/18 at 11:16; Status DC Amiodarone HCl 450 mg/Sodium Chloride 250 ml @ 33.33 mls/ hr Q7H31M PRN IV Per Protocol Last administered on 01/17/18at 23:00; Start 01/17/18 at 15:13 Amiodarone HCl 150 mg/Dextrose 100 ml @ 100 mls/hr Q1H ONCE IV Last administered on 01/17/18at 16:37; Start 01/17/18 at 15:03; Stop 01/18/18 at 12:38 ; Status DC Diltiazem HCl (Cardizem) 60 mg Q6HR PO Last administered on 01/18/18at 06:25; Start 01/17/18 at 18:00; Stop 01/18/18 at 12:14; Status DC Heparin Sodium/ Dextrose 250 ml @ 16 mls/hr TITRATE PRN IV Coagulation Management Last administered on 01/18/18at 20:13; Start 01/17/18 at 16:45; Stop 01/18/18 at 21:00; Status DC Iohexol (Omnipaque 350 Inj) 75 ml STK-MED ONCE IVCONTRAST ; Start 01/17/18 at 18 :49; Stop 01/17/18 at 18:50; Status DC Apixaban (Eliquis) 10 mg BID PO Last administered on 01/20/18at 07:54; Start at 21:00; Stop 01/20/18 at 11:21; Status DC Apixaban (Eliquis) 5 mg BID PO ; Start 01/26/18 at 09:00; Stop 01/26/18 at 09:00 ; Status DC Diltiazem HCl (Cardizem) 60 mg Q6HR PO Last administered on 01/19/18at 06:09; Start 01/18/18 at 18:00; Stop 01/19/18 at 07:00; Status DC Diltiazem HCl (Cardizem Cd) 240 mg DAILY PO ; Start 01/19/18 at 09:00; Stop at 07:41; Status DC Sodium Chloride 250 ml @ 15 mls/hr ONCE ONCE IV ; Start 01/19/18 at 15:30; Stop 01/20/18 at 08:09; Status DC Diltiazem HCl (Cardizem Cd) 120 mg DAILY PO Last administered on 01/22/18at 08: 05; Start 01/20/18 at 09:00 Sodium Chloride 250 ml @ 15 mls/hr ONCE ONCE IV Last administered on at 11:40; Start 01/20/18 at 11:15; Stop 01/21/18 at 03:54; Status DC Furosemide (Lasix Inj) 20 mg ONCE ONCE IV PUSH Last administered on 01/20/18at 14:23; Start 01/20/18 at 11:15; Stop 01/20/18 at 11:20; Status DC Apixaban (Eliquis) 2.5 mg BID PO Last administered on 01/20/18at 20:23; Start at 21:00; Stop 01/22/18 at 11:23; Status DC Apixaban (Eliquis) 2.5 mg BID PO ; Start 01/26/18 at 09:00; Stop 01/26/18 at 09: 00; Status DC Miscellaneous (Pill Splitter) 1 ea UNSCH PRN OTHER SEE LABEL COMMENTS; Start at 14:45 Heparin Sodium/ Dextrose 250 ml @ 16 mls/hr TITRATE PRN IV Coagulation Management Last administered on 01/21/18at 08:18; Start 01/21/18 at 08:00; Status Future Hold Apixaban (Eliquis) 2.5 mg BID PO ; Start 01/22/18 at 12:00 A/P Problem List: (1) Paroxysmal atrial fibrillation with rapid ventricular response ICD Code: I48.0 - Paroxysmal atrial fibrillation (2) Primary localized osteoarthrosis, lower leg ICD Code: M17.10 - Unilateral primary osteoarthritis, unspecified knee (3) Status post total knee replacement, left ICD Code: Z96.652 - Presence of left artificial knee joint (4) Hypertension ICD Code: I10 - Essential (primary) hypertension (5) Pulmonary embolism ICD Code: I26.99 - Other pulmonary embolism without acute cor pulmonale (6) Microcytic anemia ICD Code: D50.9 - Iron deficiency anemia, unspecified Assessment and Plan 87-year-old female with: Pulmonary Embolism confirmed on CTA patient was on heparin and transitioned to Eliquis. However she was experiencing bleeding at the surgical site and hemoptysis, Therefore she was switched back to heparin. Appreciate hematology input. Decision on long-term anticoagulant pending hospitals course and resolution of bleeding. Hemoptysis: Likely secondary to PE. Resolved. - See above. - Follow closely Acute blood loss anemia: Secondary to bleeding from surgical site and hemoptysis. Patient was symptomatic, status post 2 units of PRBC transfusion. Appreciate hematology following. Iron, TIBC, and % saturation all low. Ferritin normal. Defer to hematology on whether or not she would benefit from iron supplementation. CT of the lower extremity per hematology to rule out further bleeding. Showed a hematoma Elongated heterogeneous density of the vastus medialis muscle at the mid thigh indicating possible intramuscular hematoma. Prominent surrounding soft tissue edema. Atrial fibrillation with RVR EKG confirmed atrial fibrillation with RVR Troponin remained within normal limits Conversion following Lopressor IV, amiodarone drip, now on Cardizem p.o. Cardiology followed the patient. On heparin as above. [id number] score greater than 5. Will need long-term anticoagulation to reduce the risk of stroke. Once bleeding has stopped and risk of bleeding has decreased s/p Left total knee arthroplasty continue pain control Continue physical therapy Had issues with bleeding at the surgical site. Orthopedics aware. Dressing changes and monitor H&H Medial condyle fracture, status post fall Ortho states patient is non surgical at this time. However may need intervention based on progress. Hypertension, Hypothyroidism Continue outpatient medications Norvasc and Synthroid DVT prophylaxis on heparin Discharge Planning Will need [facility] once medically cleared. Discharge Planning [facility] Problem Qualifiers (1) Primary localized osteoarthrosis, lower leg: Qualified Codes: M17.12 - Unilateral primary osteoarthritis, left knee Uriel Harris DO Jan 22, 2018 11:44
[2018-01-22] MEDS: APIXABAN 2.5 MG TABLET PO SCH ×2 (14:02→19:43)
--- NOTE | 2018-01-22 16:04 | PD.ONC.PN ---
Subjective Subjective Remarks Afebrile Patient reports she is feeling pretty good Pain in her leg is mostly controlled Looking forward to going to rehab Objective Data Date Time Temp Pulse Resp B/P (MAP) Pulse Ox O2 Delivery O2 Flow Rate FiO2 01/22/18 11:36 98.7 95 18 114/70 (85) 97 01/22/18 10:40 20 01/22/18 10:31 20 01/22/18 08:04 98.4 86 17 107/65 (79) 100 01/22/18 04:35 98.5 80 17 118/61 (80) 99 01/22/18 00:05 99.1 85 17 118/63 (81) 98 01/21/18 20:40 98.6 85 18 124/63 (83) 97 01/21/18 17:02 89 01/22/18 01/22/18 01/22/18 07:00 15:00 23:00 Intake Total 480 ml Balance 480 ml Result Diagram: 01/22/18 0500 01/21/18 0345 Laboratory Results Laboratory Tests Test 01/21/18 20:42 01/22/18 05:00 Hemoglobin 10.4 GM/DL 9.3 GM/DL Hematocrit 30.8 % 28.1 % Activated Partial Thromboplast Time 29.7 SEC White Blood Count 11.4 TH/MM3 Red Blood Count 3.53 MIL/MM3 Mean Corpuscular Volume 79.6 FL Mean Corpuscular Hemoglobin 26.5 PG Mean Corpuscular Hemoglobin Concent 33.3 % Red Cell Distribution Width 16.4 % Platelet Count 257 TH/MM3 Mean Platelet Volume 7.6 FL Neutrophils (%) (Auto) 70.4 % Lymphocytes (%) (Auto) 15.4 % Monocytes (%) (Auto) 9.9 % Eosinophils (%) (Auto) 3.9 % Basophils (%) (Auto) 0.4 % Neutrophils # (Auto) 8.0 TH/MM3 Lymphocytes # (Auto) 1.7 TH/MM3 Monocytes # (Auto) 1.1 TH/MM3 Eosinophils # (Auto) 0.4 TH/MM3 Basophils # (Auto) 0.0 TH/MM3 CBC Comment DIFF FINAL Differential Comment Administered Medications Medications (Trade) Dose Ordered Sig/Leo Route PRN Reason Start Time Stop Time Status Last Admin Dose Admin Levothyroxine Sodium (Synthroid) 50 mcg DAILY@0600 PO 01/16/18 06:00 01/22/18 06:22 Sodium Chloride 1,000 ml @ 100 mls/hr Q10H IV 01/15/18 13:00 01/18/18 08:53 Acetaminophen/ Hydrocodone Bitart (Spencer 5-325 Mg) 1 tab Q4H PRN PO PAIN LESS THAN 5 ON SCALE 01/15/18 12:30 01/21/18 01:11 Acetaminophen/ Hydrocodone Bitart (Spencer 5-325 Mg) 2 tab Q4H PRN PO PAIN SCALE 5 TO 10 01/15/18 12:30 01/22/18 08:05 Multivitamins/ Minerals Therapeutic (Theragran M Tab) 1 tab BID PO 01/16/18 21:00 03/17/18 20:59 01/22/18 08:04 Ondansetron HCl (Zofran Inj) 4 mg Q6H PRN IVP NAUSEA OR VOMITING 01/15/18 12:30 01/17/18 14:20 Docusate Sodium (Colace) 100 mg BID PO 01/16/18 21:00 01/22/18 08:05 Magnesium Hydroxide (Milk Of Magnesia Liq) 30 ml DAILY PRN PO CONSTIPATION 01/15/18 12:30 01/18/18 20:08 Morphine Sulfate (Morphine Inj) 2 mg Q3H PRN IV PUSH pain greater than 5 01/15/18 13:30 01/22/18 10:35 Amiodarone HCl 450 mg/Sodium Chloride 250 ml @ 33.33 mls/ hr Q7H31M PRN IV Per Protocol 01/17/18 15:13 01/17/18 23:00 Diltiazem HCl (Cardizem Cd) 120 mg DAILY PO 01/20/18 09:00 01/22/18 08:05 Heparin Sodium/ Dextrose 250 ml @ 16 mls/hr TITRATE PRN IV Coagulation Management 01/21/18 08:00 Future Hold 01/21/18 08:18 Apixaban (Eliquis) 2.5 mg BID PO 01/22/18 12:00 01/22/18 14:02 Objective Remarks GENERAL: Elderly female resting in bed in no obvious distress SKIN: Warm and dry. HEAD: Normocephalic. EYES: No injection or drainage. NECK: Supple, trachea midline. CARDIOVASCULAR: Regular rate and rhythm RESPIRATORY: Clear anteriorly. Breathing unlabored at rest. GASTROINTESTINAL: Abdomen soft, non-tender, nondistended. EXTREMITIES: No cyanosis. Left leg in total knee immobilizer. NEUROLOGICAL: No obvious focal deficit. Awake, alert, and oriented x3. Assessment/Plan Problem List: (1) Microcytic anemia ICD Codes: D50.9 - Iron deficiency anemia, unspecified Plan: 01/22: Per orthopedics they are comfortable resuming full anticoagulation. Will start patient on Eliquis 2.5 mg twice daily. We will check serial H&H every 12 hours to assess for bleeding. If patient is going to [place], we can continue to monitor her labs and she can be discharged tomorrow. Otherwise we will keep her for at least 2 more days to evaluate hemoglobin. 01/21: monitor hgb. check CT of left thigh to evaluate for internal bleeding. iron studies show low TIBC as well as low serum iron and % saturation. may benefit from additional IV iron (received ~500mg with the two units of blood she received). update: CT shows thigh hematoma. will place heparin on hold for now. --due to the blood loss from recent surgery, as well as more bleeding since she has been placed on anticoagulation. -B12 WNL (2) Pulmonary embolism ICD Codes: I26.99 - Other pulmonary embolism without acute cor pulmonale Plan: --on Eliquis Assessment 87y/o female with pulmonary embolism and anemia, s/p left knee replacement. history of hypertension, hypothyroidism, and arthritis. new onset atrial fibrillation Attending Statement The exam, history, and the medical decision-making described in the above note were completed with the assistance of the mid-level provider. I reviewed and agree with the findings presented. I attest that I had a [id number] encounter with the patient on the same day, and personally performed and documented my assessment and findings in the medical record. still has pain at surgical site. No more bleeding. Hemoptysis has resoled. H/H stable. d/w Dr Flynn.He clears her to resume anticoagulation. Resume eliquis 2.5 mg BID due to PE and a fib. Monitor H/H q 12 and if stable then can be d/c to [facility] tomorrow. has blood loss anemia. Diane Sahu Jan 22, 2018 16:04 Rick Bergman MD Jan 22, 2018 22:06
[2018-01-22 16:16] VITALS: BP 115/63; PULSE 69; RESP 16; TEMP 98.4; O2SAT 98
[2018-01-22 21:33] LABS: HEMATOCRIT 26.7 % (35.0-46.0); HEMOGLOBIN 8.9 GM/DL (11.6-15.3)
[2018-01-23] VITALS: BP 104/65; PULSE 72; RESP 17; TEMP 98.3; O2SAT 98
[2018-01-23] MEDS: LEVOTHYROXINE SODIUM 50 MCG TAB PO SCH (06:21)
[2018-01-23 07:56] VITALS: BP 126/60; PULSE 71; RESP 18; TEMP 97.8; O2SAT 95
[2018-01-23 08:55] LABS: AUTOMATED NEUTROPHIL # 7.7 TH/MM3 (1.8-7.7); BASOPHIL % 0.4 % (0.0-2.0); EOSINOPHIL # 0.3 TH/MM3 (0-0.4); HEMATOCRIT 27.4 % (35.0-46.0); HEMOGLOBIN 9.1 GM/DL (11.6-15.3); LYMPH % 13.5 % (9.0-44.0); LYMPHOCYTE # 1.4 TH/MM3 (1.0-4.8); MEAN CELL VOLUME 80.2 FL (80.0-100.0); MEAN CORPUSCULAR HEMOGLOBIN 26.7 PG (27.0-34.0); MEAN CORPUSCULAR HGB CONC 33.4 % (32.0-36.0); MEAN PLATELET VOLUME 7.3 FL (7.0-11.0); MONO % 9.4 % (0.0-8.0); NEUT % 73.7 % (16.0-70.0); PLATELET COUNT 271 TH/MM3 (150-450); RED BLOOD COUNT 3.41 MIL/MM3 (4.00-5.30); RED CELL DISTRIBUTION WIDTH 16.6 % (11.6-17.2); WHITE BLOOD COUNT 10.4 TH/MM3 (4.0-11.0)
[2018-01-23] MEDS: MULTIVITAMINS/MINERALS THERAPEUTIC TAB PO SCH (09:08)
[2018-01-23] MEDS: DILTIAZEM-CD 120 MG CAP ER PO SCH (09:08)
[2018-01-23] MEDS: DOCUSATE SODIUM 100 MG CAP PO SCH (09:08)
[2018-01-23] MEDS: MAGNESIUM HYDROXIDE SUSP 30 ML CUP PO PRN (09:08)
[2018-01-23] MEDS: APIXABAN 2.5 MG TABLET PO SCH (09:08)
[2018-01-23] MEDS: ACETAMINOPHEN/HYDROcodone 325 MG/5 MG TAB PO PRN ×2 (09:12→14:59)
[2018-01-23 09:27] LABS: ALBUMIN 2.1 GM/DL (3.4-5.0); ALT (GPT) 33 U/L (10-53); AST (GOT) 35 U/L (15-37); BICARBONATE 30.5 MEQ/L (21.0-32.0); BLOOD UREA NITROGEN 15 MG/DL (7-18); CALCIUM 8.3 MG/DL (8.5-10.1); CHLORIDE 100 MEQ/L (98-107); GLOMERULAR FILTRATION RATE 72 ML/MIN (>89); GLUCOSE,RANDOM 106 MG/DL (74-106); MAGNESIUM 2.4 MG/DL (1.5-2.5); PHOSPHORUS 3.7 MG/DL (2.5-4.9); SODIUM (NA) 137 MEQ/L (136-145)
[2018-01-23 09:36] LABS: ALKALINE PHOSPHATASE 93 U/L (45-117); FREE T4 0.96 NG/DL (0.76-1.46); TOTAL PROTEIN 5.8 GM/DL (6.4-8.2)
[2018-01-23] MEDS ORDERED: APIX2.5T PO (09:56)
--- NOTE | 2018-01-23 10:01 | HHI.PR ---
Subjective Remarks Patient reports she is feeling better. Objective Vitals Vital Signs Date Time Temp Pulse Resp B/P (MAP) Pulse Ox O2 Delivery O2 Flow Rate FiO2 01/23/18 07:56 97.8 71 18 126/60 (82) 95 01/23/18 00:00 98.3 72 17 104/65 (78) 98 01/22/18 16:16 98.4 69 16 115/63 (80) 98 01/22/18 11:36 98.7 95 18 114/70 (85) 97 01/22/18 10:40 20 01/22/18 10:31 20 I/O 01/22/18 01/22/18 01/22/18 01/23/18 01/23/18 01/23/18 07:00 15:00 23:00 07:00 15:00 23:00 Intake Total 480 ml 800 ml Balance 480 ml 800 ml Intake Oral 480 ml 800 ml # Voids 2 4 # Bowel Movements 0 0 Result Diagram: 01/23/18 0730 01/23/18 0730 Imaging Last Impressions Lower Extremity Ultrasound 01/21/18 0800 Signed Impressions: Service Date/Time: Sunday, January 21, 2018 08:55 - CONCLUSION: No DVT. Gabe Davis Jr., MD Lower Extremity CT 01/21/18 0000 Signed Impressions: Service Date/Time: Sunday, January 21, 2018 13:07 - CONCLUSION: Elongated heterogeneous density of the vastus medialis muscle at the mid thigh indicating possible intramuscular hematoma. Prominent surrounding soft tissue edema. Gerardo Ramsey MD Lung Scan- Nuclear Medicine 01/17/18 0000 Signed Impressions: Service Date/Time: Wednesday, January 17, 2018 15:16 - CONCLUSION: High probability for pulmonary embolism. Uriel Strickland MD FACR Chest X-Ray 01/17/18 0000 Signed Impressions: Service Date/Time: Wednesday, January 17, 2018 13:55 - CONCLUSION: Minimal parenchymal changes left base. Atelectasis versus early inflammatory process Uriel Strickland MD FACR CT Angiography 01/17/18 0000 Signed Impressions: Service Date/Time: Wednesday, January 17, 2018 18:43 - CONCLUSION: Multiple pulmonary emboli seen bilaterally. Baldo Canada MD Knee X-Ray 01/15/18 1226 Signed Impressions: Service Date/Time: Monday, January 15, 2018 13:50 - CONCLUSION: Status post total knee arthroplasty. Uriel Strickland MD Objective Remarks GENERAL: Well-nourished, well-developed patient. CARDIOVASCULAR: Regular rate and rhythm without murmurs RESPIRATORY: Breath sounds equal bilaterally. No accessory muscle use. GASTROINTESTINAL: Abdomen soft, non-tender, nondistended. EXTREMITIES: Left leg is wrapped. In a knee immobilizer. Left leg swelling improved compared to yesterday. Right leg normal. NEUROLOGICAL: Awake, alert, and oriented x 3. Non-focal. A/P Problem List: (1) Paroxysmal atrial fibrillation with rapid ventricular response ICD Code: I48.0 - Paroxysmal atrial fibrillation (2) Primary localized osteoarthrosis, lower leg ICD Code: M17.10 - Unilateral primary osteoarthritis, unspecified knee (3) Status post total knee replacement, left ICD Code: Z96.652 - Presence of left artificial knee joint (4) Hypertension ICD Code: I10 - Essential (primary) hypertension (5) Pulmonary embolism ICD Code: I26.99 - Other pulmonary embolism without acute cor pulmonale (6) Microcytic anemia ICD Code: D50.9 - Iron deficiency anemia, unspecified Assessment and Plan 87-year-old female with: Pulmonary Embolism confirmed on CTA patient was on heparin and transitioned to Eliquis. However she was experiencing bleeding at the surgical site and hemoptysis, Therefore she was switched back to heparin. Appreciate hematology input. Bleeding resolved. Resume Eliquis 2.5 mg BID per Hematology. Hemoptysis: Likely secondary to PE. Resolved. - See above. - Follow closely Acute blood loss anemia: Secondary to bleeding from surgical site and hemoptysis. Patient was symptomatic, status post 2 units of PRBC transfusion. Appreciate hematology following. Iron, TIBC, and % saturation all low. CT of the lower extremity confirmed a hematoma H&H stable. Atrial fibrillation with RVR EKG confirmed atrial fibrillation with RVR Troponin remained within normal limits Conversion following Lopressor IV, amiodarone drip, now on Cardizem p.o. Cardiology followed the patient. [id number] score greater than 5. Continue Eliquis as above. s/p Left total knee arthroplasty continue pain control Continue physical therapy Had issues with bleeding at the surgical site. Orthopedics aware. Dressing changes and monitor H&H Medial condyle fracture, status post fall Ortho states patient is non surgical at this time. Hypertension, Hypothyroidism Continue outpatient medications Norvasc and Synthroid DVT prophylaxis Eliquis Discharge Planning Hospitalist clear for DC to [place]. Problem Qualifiers (1) Primary localized osteoarthrosis, lower leg: Qualified Codes: M17.12 - Unilateral primary osteoarthritis, left knee Kimmy Garza MD Jan 23, 2018 10:01
[2018-01-23 10:17] LABS: HEMATOCRIT 28.4 % (35.0-46.0); HEMOGLOBIN 9.5 GM/DL (11.6-15.3)
[2018-01-23] MEDS: SODIUM CHLOR 0.9% 1000 ML INJ 1,000 ML IV SCH (11:00)
[2018-01-23 11:01] VITALS: PULSE 83
--- NOTE | 2018-01-23 11:33 | PD.ONC.PN ---
Subjective Subjective Remarks Afebrile overnight. Patient resting in bed in nad. still having pain and swelling in left leg, but otherwise without complaint. hoping to go to rehab soon. Objective Data Date Time Temp Pulse Resp B/P (MAP) Pulse Ox O2 Delivery O2 Flow Rate FiO2 01/23/18 11:01 83 01/23/18 07:56 97.8 71 18 126/60 (82) 95 01/23/18 00:00 98.3 72 17 104/65 (78) 98 01/22/18 16:16 98.4 69 16 115/63 (80) 98 01/22/18 11:36 98.7 95 18 114/70 (85) 97 Result Diagram: 01/23/18 0953 01/23/18 0730 Laboratory Results Laboratory Tests Test 01/22/18 20:42 01/23/18 07:30 01/23/18 09:53 Hemoglobin 8.9 GM/DL 9.1 GM/DL 9.5 GM/DL Hematocrit 26.7 % 27.4 % 28.4 % White Blood Count 10.4 TH/MM3 Red Blood Count 3.41 MIL/MM3 Mean Corpuscular Volume 80.2 FL Mean Corpuscular Hemoglobin 26.7 PG Mean Corpuscular Hemoglobin Concent 33.4 % Red Cell Distribution Width 16.6 % Platelet Count 271 TH/MM3 Mean Platelet Volume 7.3 FL Neutrophils (%) (Auto) 73.7 % Lymphocytes (%) (Auto) 13.5 % Monocytes (%) (Auto) 9.4 % Eosinophils (%) (Auto) 3.0 % Basophils (%) (Auto) 0.4 % Neutrophils # (Auto) 7.7 TH/MM3 Lymphocytes # (Auto) 1.4 TH/MM3 Monocytes # (Auto) 1.0 TH/MM3 Eosinophils # (Auto) 0.3 TH/MM3 Basophils # (Auto) 0.0 TH/MM3 CBC Comment DIFF FINAL Differential Comment Blood Urea Nitrogen 15 MG/DL Creatinine 0.90 MG/DL Random Glucose 106 MG/DL Total Protein 5.8 GM/DL Albumin 2.1 GM/DL Calcium Level 8.3 MG/DL Phosphorus Level 3.7 MG/DL Magnesium Level 2.4 MG/DL Alkaline Phosphatase 93 U/L Aspartate Amino Transf (AST/SGOT) 35 U/L Alanine Aminotransferase (ALT/SGPT) 33 U/L Total Bilirubin 1.0 MG/DL Sodium Level 137 MEQ/L Potassium Level 3.7 MEQ/L Chloride Level 100 MEQ/L Carbon Dioxide Level 30.5 MEQ/L Anion Gap 7 MEQ/L Estimat Glomerular Filtration Rate 72 ML/MIN Free Thyroxine 0.96 NG/DL Thyroid Stimulating Hormone 3rd Gen 9.420 uIU/ML Administered Medications Medications (Trade) Dose Ordered Sig/Leo Route PRN Reason Start Time Stop Time Status Last Admin Dose Admin Levothyroxine Sodium (Synthroid) 50 mcg DAILY@0600 PO 01/16/18 06:00 01/23/18 06:21 Sodium Chloride 1,000 ml @ 100 mls/hr Q10H IV 01/15/18 13:00 01/22/18 15:00 Acetaminophen/ Hydrocodone Bitart (Starke 5-325 Mg) 1 tab Q4H PRN PO PAIN LESS THAN 5 ON SCALE 01/15/18 12:30 01/23/18 09:12 Acetaminophen/ Hydrocodone Bitart (Starke 5-325 Mg) 2 tab Q4H PRN PO PAIN SCALE 5 TO 10 01/15/18 12:30 01/22/18 23:46 Multivitamins/ Minerals Therapeutic (Theragran M Tab) 1 tab BID PO 01/16/18 21:00 03/17/18 20:59 01/23/18 09:08 Ondansetron HCl (Zofran Inj) 4 mg Q6H PRN IVP NAUSEA OR VOMITING 01/15/18 12:30 01/17/18 14:20 Docusate Sodium (Colace) 100 mg BID PO 01/16/18 21:00 01/23/18 09:08 Magnesium Hydroxide (Milk Of Magnesia Liq) 30 ml DAILY PRN PO CONSTIPATION 01/15/18 12:30 01/23/18 09:08 Morphine Sulfate (Morphine Inj) 2 mg Q3H PRN IV PUSH pain greater than 5 01/15/18 13:30 01/22/18 10:35 Amiodarone HCl 450 mg/Sodium Chloride 250 ml @ 33.33 mls/ hr Q7H31M PRN IV Per Protocol 01/17/18 15:13 01/17/18 23:00 Diltiazem HCl (Cardizem Cd) 120 mg DAILY PO 01/20/18 09:00 01/23/18 09:08 Heparin Sodium/ Dextrose 250 ml @ 16 mls/hr TITRATE PRN IV Coagulation Management 01/21/18 08:00 Future Hold 01/21/18 08:18 Apixaban (Eliquis) 2.5 mg BID PO 01/22/18 12:00 01/23/18 09:08 Objective Remarks GENERAL: pleasant female, lying supine in bed resting. SKIN: Warm and dry. HEAD: Normocephalic. EYES: No injection or drainage. NECK: Supple, trachea midline. CARDIOVASCULAR: Regular rate and rhythm RESPIRATORY: anterior hansen clear. GASTROINTESTINAL: Abdomen soft, non-tender, nondistended. EXTREMITIES: No cyanosis. left leg in TKI with swelling throughout leg. NEUROLOGICAL: awake and alert. normal speech. Assessment/Plan Problem List: (1) Microcytic anemia ICD Codes: D50.9 - Iron deficiency anemia, unspecified Plan: 01/23: H/H remains stable. continue Eliquis 2.5mg PO BID. clear for d/c to [facility]. 01/22: Per orthopedics they are comfortable resuming full anticoagulation. Will start patient on Eliquis 2.5 mg twice daily. We will check serial H&H every 12 hours to assess for bleeding. If patient is going to [facility], we can continue to monitor her labs and she can be discharged tomorrow. Otherwise we will keep her for at least 2 more days to evaluate hemoglobin. 01/21: monitor hgb. check CT of left thigh to evaluate for internal bleeding. iron studies show low TIBC as well as low serum iron and % saturation. may benefit from additional IV iron (received ~500mg with the two units of blood she received). update: CT shows thigh hematoma. will place heparin on hold for now. --due to the blood loss from recent surgery, as well as more bleeding since she has been placed on anticoagulation. -B12 WNL (2) Pulmonary embolism ICD Codes: I26.99 - Other pulmonary embolism without acute cor pulmonale Plan: --on Eliquis Assessment 87y/o female with pulmonary embolism and anemia, s/p left knee replacement. history of hypertension, hypothyroidism, and arthritis. new onset atrial fibrillation Attending Statement The exam, history, and the medical decision-making described in the above note were completed with the assistance of the mid-level provider. I reviewed and agree with the findings presented. I attest that I had a [id number] encounter with the patient on the same day, and personally performed and documented my assessment and findings in the medical record. No new c/o H/H stable on eliquis 2.5 mg BID. OK to d/c to [facility]. sign off available Nasreen Sanchez Jan 23, 2018 11:33 Rick Bergman MD Jan 23, 2018 16:56
[2018-01-23 12:13] VITALS: BP 109/58; PULSE 82; RESP 17; TEMP 98.9; O2SAT 99
--- NOTE | 2018-01-23 12:28 | PD.ORT.PN ---
Subjective Post Op Day #: 7 Subjective Remarks Patient c/o minimal knee pain today. Denies SOB or CP. Objective Vitals Vital Signs Date Time Temp Pulse Resp B/P (MAP) Pulse Ox O2 Delivery O2 Flow Rate FiO2 01/23/18 12:13 98.9 82 17 109/58 (75) 99 01/23/18 11:01 83 01/23/18 07:56 97.8 71 18 126/60 (82) 95 01/23/18 00:00 98.3 72 17 104/65 (78) 98 01/22/18 16:16 98.4 69 16 115/63 (80) 98 I/O 01/22/18 01/22/18 01/22/18 01/23/18 01/23/18 01/23/18 07:00 15:00 23:00 07:00 15:00 23:00 Intake Total 480 ml 800 ml Balance 480 ml 800 ml Intake Oral 480 ml 800 ml # Voids 2 4 # Bowel Movements 0 0 Result Diagram: 01/23/18 0953 01/23/18 0730 Imaging Last 24 hours Impressions Lower Extremity CT 01/16/18 0000 Signed Impressions: Service Date/Time: December 09:13 - CONCLUSION: 1. Medial condylar fracture which is only partially visualized due to significant artifact from the patient's prosthesis. 2. Status post total knee arthroplasty. 3. Soft tissue inflammation which may be related to recent replacement and or trauma. Omid Garcia MD Procedures Left TKA Objective Remarks Dressing is C/D/I. + NVI. Mild knee swelling. No erythema. Mild thigh swelling. No tenderness or ecchymosis. Compartments soft. Calf is soft and nontender. Non-labored breathing. Assessment & Plan Ortho Post Op Day #: 7 Problem List: Assessment and Plan Postop day #7 status post left total knee arthroplasty, postoperative pulmonary embolism New postoperative minimally displaced vertically oriented medial condylar fracture. (DOI: 01/16/18) Plan: CTA confirmed multiple pulmonary emboli. Anticoagulation resumed (Eliquis 2.5 mg) Toe-touch weightbearing left lower extremity. Canvas knee splint at all times. Maintain dressing if no drainage. [facility], [facility]. Stable for discharge today per ortho. Will continue with conservative management of distal femur fracture. Will follow closely. Patient aware ORIF may be necessary if fracture were to displace. F/U in the office as previously scheduled with Dr. Flynn or FELIX Meyers Daniel Scott ARNP Jan 23, 2018 12:28
[2018-01-23 13:18] VITALS: O2SAT 99
[2018-01-23 16:10] VITALS: BP 112/64; PULSE 79; RESP 18; TEMP 98.7; O2SAT 97
[2018-01-23 19:16] LABS: HEMOGLOBIN A1C 5.5 % (4.3-6.0)
[2018-01-26] MEDS ORDERED: APIXABAN 5 MG TABLET PO SCH ×2 (09:00)
[2018-02-20] MEDS ORDERED: IOHEXOL 350 MG/ML 10 ML VIAL (for RAD DIAG) IVCONTRAST ONE (13:07)
== END 2018-01-23 17:55 | DRG 470 ==
LOC: EDUNIT# 08:30 → HSDI 01-15 06:39 → EDSTATUS 01-15 10:00 → N06A 01-15 14:18 → N03B 01-17 12:20 → HCIS 01-18 01:02 → N06A 01-18 16:06
PROVIDERS: ADMIT Orthopaedic Surgery; ATTEND Orthopaedic Surgery
PROC: 3E0T3BZ Introduction of Anesthetic Agent into Peripheral Nerves and Plexi, Percutaneous Approach (ICD-10-PCS; 2018-01-15)
PROC: 0SRD0J9 Replacement of Left Knee Joint with Synthetic Substitute, Cemented, Open Approach (ICD-10-PCS; principal; 2018-01-15 10:08)
PROC: 30233N1 Transfusion of Nonautologous Red Blood Cells into Peripheral Vein, Percutaneous Approach (ICD-10-PCS; 2018-01-19)
DX: M17.12 Unilateral primary osteoarthritis, left knee (principal); S72.432A Displaced fracture of medial condyle of left femur, initial encounter for closed fracture; I26.99 Other pulmonary embolism without acute cor pulmonale; D62 Acute posthemorrhagic anemia; R04.2 Hemoptysis; I48.0 Paroxysmal atrial fibrillation; I10 Essential (primary) hypertension; E03.9 Hypothyroidism, unspecified; R55 Syncope and collapse; K21.9 Gastro-esophageal reflux disease without esophagitis; M21.00 Valgus deformity, not elsewhere classified, unspecified site; Y93.01 Activity, walking, marching and hiking; Y92.230 Patient room in hospital as the place of occurrence of the external cause; Y99.9 Unspecified external cause status; W19.XXXA Unspecified fall, initial encounter; S70.12XA Contusion of left thigh, initial encounter
CPT/HCPCS: 36430; 36600; 71045; 71275; 73560; 73700; 73701; 78582; 80048; 80053; 82550; 82607; 82728; 82746; 82805; 82948; 83010; 83036; 83540; 83550; 83615; 83735; 84100; 84439; 84443; 84484; 85014; 85018; 85025; 85027; 85044; 85379; 85384; 85610; 85730; 86850; 86900; 86901; 86920; 93005; 93306; 93970; 94150; A9540; A9567; C1776; C9290; J0131; J0282; J0690; J0735; J1100; J1580; J1644; J1650; J1885; J1940; J2250; J2270; J2370; J2405; J2795; J3010; J3370; J7030; J7050; J7120; L1830; P9016; Q9967

== ENCOUNTER 2018-02-05 10:58 | Inpatient (IN) | payer MEDICARE, BC ==
[2018-02-05] MEDS ORDERED: ROCURONIUM INJ 50 MG/5 ML SYRINGE IV PUSH (12:00)
[2018-02-05] MEDS ORDERED: ONDANSETRON HCL 4 MG/2 ML VIAL IV (12:00)
[2018-02-05] MEDS ORDERED: LABETALOL HCL 100 MG/20 ML VIAL IV (12:00)
[2018-02-05] MEDS ORDERED: GLYCOPYRROLATE 1 MG/5 ML SYRINGE IV PUSH (12:00)
[2018-02-05] MEDS ORDERED: STERILE WATER FOR INJECTION 20 ML VIAL IV (12:00)
[2018-02-05] MEDS ORDERED: PHENYLEPH/NS 1000 MCG/10 ML SYR IV (12:00)
[2018-02-05] MEDS ORDERED: LIDOCAINE HCL 1% PF 5 ML SYRINGE OTHER (12:00)
[2018-02-05] MEDS ORDERED: PROPOFOL 200 MG/20 ML AMP IV (12:00)
[2018-02-05] MEDS ORDERED: ceFAZolin INJ 1,000 MG VIAL IV (12:00)
[2018-02-05] MEDS ORDERED: DEXAMETHASONE SOD PHOS 4 MG/ML VIAL IV (12:00)
[2018-02-05] MEDS ORDERED: NEOSTIGMINE 5 MG/5 ML SYRINGE IV PUSH (12:00)
[2018-02-05] MEDS: ceFAZolin INJ 1,000 MG VIAL IV (13:40)
[2018-02-05] MEDS: VANCOMYCIN HCL 1000 MG VIAL (13:50)
[2018-02-05] MEDS ORDERED: SODIUM CHLORID 0.9% 500 ML IV (14:15)
[2018-02-05] MEDS ORDERED: LACTATED RINGER'S 1000 ML IV (14:15)
[2018-02-05] MEDS ORDERED: CHLORHEXIDINE GLUCONATE 2 % 1 PACK (2 CLOTHS) TOPICAL (14:15)
[2018-02-05] MEDS ORDERED: METOPROLOL TARTRATE 25 MG TAB PO (14:15)
[2018-02-05] MEDS ORDERED: POVIDONE IODINE 5% (ANTISEPSIS KIT) 4 APPLICATIONS EACH NARE (14:15)
[2018-02-05] MEDS: GENTAMICIN SULFATE 80 MG/2 ML VIAL (14:39)
[2018-02-05] MEDS ORDERED: ONDANSETRON HCL 4 MG/2 ML VIAL IVP (15:30)
[2018-02-05] MEDS ORDERED: NALOXONE HCL 0.4 MG/ML AMP IV PUSH (15:30)
[2018-02-05] MEDS ORDERED: POLYETHYLENE GLYCOL 17 GM PKG PO (15:30)
[2018-02-05] MEDS ORDERED: BISACODYL 10 MG SUPP RECTAL (15:30)
[2018-02-05] MEDS ORDERED: ACETAMINOPHEN 325 MG TAB PO (15:30)
[2018-02-05] MEDS ORDERED: diphenhydrAMINE HCL 50 MG/ML VIAL IV PUSH (15:30)
[2018-02-05] MEDS ORDERED: ALUMINUM/MAGNESIUM/SIMETH 30 ML CUP PO (15:30)
[2018-02-05] MEDS ORDERED: MAGNESIUM HYDROXIDE SUSP 30 ML CUP PO (15:30)
[2018-02-05] MEDS ORDERED: DO NOT ADM ANY ANTICOAGULANT DRUGS (15:45)
[2018-02-05] MEDS: Post-op Orders (for Pharmacy) XX (15:45)
[2018-02-05] MEDS: *morphine SULFATE 8 MG/ML PERIprocedure ONLY (16:19)
[2018-02-05] MEDS: SODIUM CHLOR 0.9% 1000 ML INJ 1,000 ML IV (17:00)
[2018-02-05] MEDS: MORPHINE SULFATE 4 MG/ML INJ IV PUSH (17:35)
[2018-02-05] MEDS: DILTIAZEM HCL 30 MG TAB PO (20:59)
[2018-02-05] MEDS ORDERED: APIXABAN 2.5 MG TABLET PO (21:00)
[2018-02-05] MEDS: ACETAMINOPHEN/HYDROcodone 325 MG/5 MG TAB PO (21:25)
[2018-02-05] MEDS: CARBAMIDE PEROXIDE 6.5% OTIC SOLN 15 ML BTL LEFT EAR (22:14)
[2018-02-05] MEDS: BETHANECHOL CHL 10 MG TAB PO (22:14)
[2018-02-06] MEDS: SODIUM CHLOR 0.9% 1000 ML INJ 1,000 ML IV ×3 (02:00→22:00)
[2018-02-06] MEDS: DILTIAZEM HCL 30 MG TAB PO ×3 (04:37→21:55)
[2018-02-06] MEDS: BETHANECHOL CHL 10 MG TAB PO ×3 (04:37→21:55)
[2018-02-06] MEDS: LEVOTHYROXINE SODIUM 50 MCG TAB PO (04:38)
[2018-02-06] MEDS: ACETAMINOPHEN/HYDROcodone 325 MG/5 MG TAB PO ×2 (04:38→16:04)
[2018-02-06 05:13] LABS: HEMATOCRIT 29.2 % (35.0-46.0); HEMOGLOBIN 9.6 GM/DL (11.6-15.3); MEAN CELL VOLUME 80.2 FL (80.0-100.0); MEAN CORPUSCULAR HEMOGLOBIN 26.3 PG (27.0-34.0); MEAN CORPUSCULAR HGB CONC 32.8 % (32.0-36.0); MEAN PLATELET VOLUME 6.4 FL (7.0-11.0); PLATELET COUNT 435 TH/MM3 (150-450); RED BLOOD COUNT 3.64 MIL/MM3 (4.00-5.30); RED CELL DISTRIBUTION WIDTH 17.3 % (11.6-17.2); REVIEW FLAG FINAL; WHITE BLOOD COUNT 8.7 TH/MM3 (4.0-11.0)
[2018-02-06 05:36] LABS: ANION GAP 8 MEQ/L (5-15); BLOOD UREA NITROGEN 16 MG/DL (7-18); CALCIUM 8.3 MG/DL (8.5-10.1); CHLORIDE 107 MEQ/L (98-107); CREATININE 1.16 MG/DL (0.50-1.00); GLOMERULAR FILTRATION RATE 54 ML/MIN (>89); GLUCOSE,RANDOM 136 MG/DL (74-106); POTASSIUM 4.6 MEQ/L (3.5-5.1); SODIUM (NA) 140 MEQ/L (136-145)
[2018-02-06] MEDS: FERROUS SULFATE 325 MG (65 MG ELEMENTAL IRON) TAB PO (10:06)
[2018-02-06] MEDS: CARBAMIDE PEROXIDE 6.5% OTIC SOLN 15 ML BTL LEFT EAR ×2 (10:07→19:54)
[2018-02-06] MEDS: APIXABAN 2.5 MG TABLET PO (14:36)
[2018-02-06] MEDS: DOCUSATE SODIUM 100 MG CAP PO (19:54)
[2018-02-06] MEDS: MULTIVITAMINS/MINERALS THERAPEUTIC TAB PO (19:54)
[2018-02-06] MEDS: ZOLPIDEM TARTRATE 5 MG TAB PO (21:57)
[2018-02-07] MEDS: APIXABAN 2.5 MG TABLET PO ×2 (02:49→17:38)
[2018-02-07] MEDS: LEVOTHYROXINE SODIUM 50 MCG TAB PO (05:59)
[2018-02-07] MEDS: BETHANECHOL CHL 10 MG TAB PO ×3 (05:59→22:42)
[2018-02-07] MEDS: DILTIAZEM HCL 30 MG TAB PO ×3 (05:59→22:40)
[2018-02-07] MEDS: ACETAMINOPHEN/HYDROcodone 325 MG/5 MG TAB PO ×3 (05:59→22:40)
[2018-02-07 06:08] LABS: HEMATOCRIT 24.2 % (35.0-46.0); HEMOGLOBIN 7.9 GM/DL (11.6-15.3); MEAN CELL VOLUME 80.3 FL (80.0-100.0); MEAN CORPUSCULAR HEMOGLOBIN 26.4 PG (27.0-34.0); MEAN CORPUSCULAR HGB CONC 32.9 % (32.0-36.0); MEAN PLATELET VOLUME 6.5 FL (7.0-11.0); PLATELET COUNT 358 TH/MM3 (150-450); RED BLOOD COUNT 3.01 MIL/MM3 (4.00-5.30); RED CELL DISTRIBUTION WIDTH 17.6 % (11.6-17.2); REVIEW FLAG FINAL; WHITE BLOOD COUNT 11.3 TH/MM3 (4.0-11.0)
[2018-02-07] MEDS: SODIUM CHLOR 0.9% 1000 ML INJ 1,000 ML IV ×2 (08:00→18:00)
[2018-02-07] MEDS: MULTIVITAMINS/MINERALS THERAPEUTIC TAB PO ×2 (09:43→19:48)
[2018-02-07] MEDS: FERROUS SULFATE 325 MG (65 MG ELEMENTAL IRON) TAB PO (09:43)
[2018-02-07] MEDS: DOCUSATE SODIUM 100 MG CAP PO ×2 (09:44→19:48)
[2018-02-07] MEDS: CARBAMIDE PEROXIDE 6.5% OTIC SOLN 15 ML BTL LEFT EAR ×2 (09:45→19:47)
[2018-02-07] MEDS: ZOLPIDEM TARTRATE 5 MG TAB PO (22:40)
[2018-02-08] MEDS: APIXABAN 2.5 MG TABLET PO ×2 (02:54→14:18)
[2018-02-08] MEDS: SODIUM CHLOR 0.9% 1000 ML INJ 1,000 ML IV ×2 (03:36→09:19)
[2018-02-08] MEDS: LEVOTHYROXINE SODIUM 50 MCG TAB PO (04:58)
[2018-02-08] MEDS: DILTIAZEM HCL 30 MG TAB PO ×2 (04:58→12:49)
[2018-02-08] MEDS: BETHANECHOL CHL 10 MG TAB PO ×2 (05:51→12:49)
[2018-02-08 05:59] LABS: HEMATOCRIT 23.7 % (35.0-46.0); MEAN CELL VOLUME 79.8 FL (80.0-100.0); MEAN CORPUSCULAR HGB CONC 33.8 % (32.0-36.0); MEAN PLATELET VOLUME 6.6 FL (7.0-11.0); PLATELET COUNT 347 TH/MM3 (150-450); RED BLOOD COUNT 2.97 MIL/MM3 (4.00-5.30); RED CELL DISTRIBUTION WIDTH 17.9 % (11.6-17.2); REVIEW FLAG FINAL; WHITE BLOOD COUNT 8.9 TH/MM3 (4.0-11.0)
[2018-02-08] MEDS: FERROUS SULFATE 325 MG (65 MG ELEMENTAL IRON) TAB PO (09:16)
[2018-02-08] MEDS: DOCUSATE SODIUM 100 MG CAP PO (09:16)
[2018-02-08] MEDS: MULTIVITAMINS/MINERALS THERAPEUTIC TAB PO (09:16)
[2018-02-08] MEDS: ACETAMINOPHEN/HYDROcodone 325 MG/5 MG TAB PO (09:16)
[2018-02-08] MEDS: CARBAMIDE PEROXIDE 6.5% OTIC SOLN 15 ML BTL LEFT EAR (09:18)
== END 2018-02-08 15:04 | DRG 481 ==
LOC: HSDI 10:58 → N06A 18:14
PROC: 0QSC04Z Reposition Left Lower Femur with Internal Fixation Device, Open Approach (ICD-10-PCS; principal; 2018-02-05 13:24)
DX: S72.432A Displaced fracture of medial condyle of left femur, initial encounter for closed fracture (principal); D62 Acute posthemorrhagic anemia; I48.91 Unspecified atrial fibrillation; M97.12XA Periprosthetic fracture around internal prosthetic left knee joint, initial encounter; W19.XXXA Unspecified fall, initial encounter; I10 Essential (primary) hypertension; E03.9 Hypothyroidism, unspecified; Z86.711 Personal history of pulmonary embolism; Z79.02 Long term (current) use of antithrombotics/antiplatelets; K21.9 Gastro-esophageal reflux disease without esophagitis
CPT/HCPCS: 73560; 76000; 80048; 82272; 82948; 85027; 94150; 97110-GP; 97116-GP; 97162-GP; 97167-GO